=== PATIENT | male | born 1955 | race Caucasian/White ===

== ENCOUNTER 2024-11-21 07:16 | Inpatient (IN) | payer MEDICARE, SELFPAY ==
[2024-11-18 14:44] VITALS: BP 120/73
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
--- NOTE | 2024-11-18 15:38 | PHANOTE ---
med rec note- called [facility] to verify mom dose and if am doses were taking today
[2024-11-18 16:40] LABS: % Basophils 0.4 % (0-2); % Eosinophils 0.9 % (0-6); % Immature Granulocytes 0.6 % (0-0.5); % Lymphocytes 10.1 % (20.5-51.1); % Monocytes 7.7 % (1.7-9.3); % Neutrophils 80.3 % (42.2-75.2); Absolute Eosinophils 0.1 10^3/uL (0-0.7); Absolute Lymphocytes 0.6 10^3/uL (1.2-3.4); Absolute Monocytes 0.4 10^3/uL (0.1-0.6); Absolute Neutrophils 4.4 10^3/uL (1.4-6.5); Hematocrit 31.9 % (39.0-52.0); Hemoglobin 10.4 g/dL (13.0-18.0); Mean Corp Hgb Conc. 32.6 g/dL (33.0-37.0); Mean Corpuscular Volume 88.9 fL (80.0-94.0); Mean Platelet Volume 8.7 fL (7.4-10.4); Nucleated Red Blood Cells % 0 % (-); Platelet Count 306 10^3/uL (130-400); Red Blood Cell Count 3.59 10^6/uL (4.70-6.10); Red Cell Dist. Width 16.7 % (11.5-14.5); White Blood Cell Count 5.4 10^3/uL (4.8-10.8)
[2024-11-18] MEDS: ZYVOX 600 MG PO (16:47)
[2024-11-18] MEDS: ROXICODONE 5 MG PO (16:48)
[2024-11-18] MEDS: MERREM 1000 MG IV ×2 (16:49→23:19)
[2024-11-18 16:58] LABS: ALT (SGPT) 33 U/L (0-50); AST (SGOT) 25 U/L (17-59); Albumin 3.4 g/dl (3.5-5.0); Alkaline Phosphatase 134 U/L (38-126); Blood Urea Nitrogen 19 mg/dl (9-20); Calcium 9.6 mg/dl (8.4-10.2); Carbon Dioxide 32 mmol/L (22-30); Chloride 92 mmol/L (98-107); Glucose 101 mg/dl (70-99); Potassium 4.5 mmol/L (3.5-5.1); Sodium 132 mmol/L (135-145); Total Bilirubin 0.9 mg/dl (0.2-1.3); Total Protein 7.1 g/dl (6.3-8.2); eGFR > 60.00
--- NOTE | 2024-11-18 16:58 | CM ---
Addendum entered by Vesta Santoro RN 11/18/24 17:34:
CM received discharge documents from [facility] as per [facility] Nursing sign hanger supervisor.
Addendum entered by Vesta Santoro RN 11/18/24 17:07:
CM sent referrals to
[facility]
CM confirmed that patient will be discharged from SNF to either his nieces home or his brother's home.
Original Note:
MILAD met with family in room. Patient was recently admitted to [facility] from [facility] on 11/17. As per Joanie nursing sign hanger supervisor at [facility], the facility did not have the appropriate instructions for IV antibiotics, tube feeds or
medications. Joanie spoke with Marly Gloria CM at [facility] to confirm medications. As per Fidel Nair asserts that all information that was sent to [facility] was accurate.
Joanie stated that she was able to obtain an air mattress and IV antibiotics for patient. At this time, Joanie does not have information regarding patient's tube feeding.
MILAD spoke with patient's yessy Burgos , who stated that [facility] did not have an air mattress for patient, nor did they give him his antibiotics for 24 hours. Yessy was very concerned that patient would become septic again since he miss his
antibiotic doses. Yessy stated that she does not want patient to return to [facility] as she feels they are unable to care for him.
MILAD spoke with Marta FLORINA at [facility]. She was aware of patient's concerns. They attempted to return patient to [facility], but family refused as they were not happy with [facility]'s discharge planning efforts and felt [facility] did not
communicate with them.
CM update ED physician.
CM discussed discharge planning concerns with Franca Pulido CM Director.
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
[2024-11-18 20:15] VITALS: BP 128/65
--- NOTE | 2024-11-18 20:30 | PTCARENOTE ---
Received patient from ED. Patient was transferred directly to the bed. Patient AAOx3, patient has extensive wounds, colostomy, peg tube, rousseau catheter. Wound care provided by 2RNs. WOC consult in place for wound details and treatments. Assessment
completed. Orientation completed. VSS. Bed alarm placed for safety. Patient demonstrated call jaeger. Call jaeger in reach.
[2024-11-18 22:15] VITALS: BMI 21.4
[2024-11-18] MEDS: HEPARIN 5000 UNITS SC (22:23)
[2024-11-18] MEDS: DESENEX/MITRAZOL/ZEASORB 1 APPLIC TOPICAL (22:23)
[2024-11-18] MEDS: CHLORASEPTIC/SORE THROAT SPRAY 1 SPRAY PO (22:24)
[2024-11-18] MEDS: ROXICODONE ORAL SOLUTION 5 MG PO (22:27)
[2024-11-18] MEDS: LIORESAL 10 MG PO (22:30)
[2024-11-18] MEDS: NEURONTIN 100 MG PO (22:41)
[2024-11-18] MEDS: STERILE WATER FOR INJECTION 20 ML IV (23:19)
[2024-11-18 23:42] VITALS: BP 113/60
[2024-11-19] MEDS: ROXICODONE ORAL SOLUTION 2.5 MG PO ×2 (05:48→09:43)
[2024-11-19 06:07] LABS: % Basophils 0.8 % (0-2); % Eosinophils 1.8 % (0-6); % Immature Granulocytes 0.3 % (0-0.5); % Lymphocytes 13.7 % (20.5-51.1); % Monocytes 11.6 % (1.7-9.3); % Neutrophils 71.8 % (42.2-75.2); Absolute Eosinophils 0.1 10^3/uL (0-0.7); Absolute Lymphocytes 0.5 10^3/uL (1.2-3.4); Absolute Monocytes 0.5 10^3/uL (0.1-0.6); Absolute Neutrophils 2.8 10^3/uL (1.4-6.5); Hematocrit 28.5 % (39.0-52.0); Hemoglobin 9.5 g/dL (13.0-18.0); Mean Corp Hgb Conc. 33.3 g/dL (33.0-37.0); Mean Corpuscular Hgb 29.3 pg (27.0-31.0); Mean Platelet Volume 9.1 fL (7.4-10.4); Nucleated Red Blood Cells % 0 % (-); Platelet Count 302 10^3/uL (130-400); Red Blood Cell Count 3.24 10^6/uL (4.70-6.10); White Blood Cell Count 3.9 10^3/uL (4.8-10.8)
[2024-11-19 06:25] LABS: ALT (SGPT) 25 U/L (0-50); AST (SGOT) 22 U/L (17-59); Albumin 2.8 g/dl (3.5-5.0); Alkaline Phosphatase 119 U/L (38-126); Blood Urea Nitrogen 19 mg/dl (9-20); Calcium 9.2 mg/dl (8.4-10.2); Carbon Dioxide 30 mmol/L (22-30); Chloride 96 mmol/L (98-107); Estimated Creatinine Clearance 108 ml/min; Glucose 86 mg/dl (70-99); Potassium 4.1 mmol/L (3.5-5.1); Sodium 131 mmol/L (135-145); Total Bilirubin 0.7 mg/dl (0.2-1.3); Total Protein 6.4 g/dl (6.3-8.2); eGFR > 60.00
[2024-11-19 07:40] VITALS: BP 108/69
[2024-11-19] MEDS: HEPARIN 5000 UNITS SC ×2 (09:30→20:36)
[2024-11-19] MEDS: VITAMIN C 500 MG PO (09:32)
[2024-11-19] MEDS: THERAGRAN 1 TABLET PO (09:32)
[2024-11-19] MEDS: CRESTOR 10 MG PO (09:32)
[2024-11-19] MEDS: NEURONTIN 100 MG PO ×3 (09:33→21:25)
[2024-11-19] MEDS: PROTONIX 40 MG PO (09:33)
[2024-11-19] MEDS: FOLVITE 1 MG PO (09:33)
[2024-11-19] MEDS: LIORESAL 10 MG PO ×3 (09:33→21:25)
[2024-11-19] MEDS: B COMPLEX w/VITAMIN C 1 CAPLET PO (09:33)
[2024-11-19] MEDS: STERILE WATER FOR INJECTION 20 ML IV ×3 (09:34→23:52)
[2024-11-19] MEDS: MERREM 1000 MG IV ×3 (09:34→23:51)
[2024-11-19] MEDS: DESENEX/MITRAZOL/ZEASORB 1 APPLIC TOPICAL ×2 (09:38→20:37)
[2024-11-19] MEDS: TORADOL 15 MG IV (10:55)
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
[2024-11-19 15:40] VITALS: BP 108/61
[2024-11-19] MEDS: ROXICODONE ORAL SOLUTION 5 MG PO (20:47)
[2024-11-19 23:35] VITALS: BP 108/49
[2024-11-20] MEDS: TORADOL 15 MG IV ×2 (00:08→15:07)
[2024-11-20] MEDS: TYLENOL 650 MG PO ×2 (02:01→22:59)
--- NOTE | 2024-11-20 06:13 | PTCARENOTE ---
Pt with 50ml output from Chronic Bolaños. Bladder scan for 397. Notified Milana CAI. Catheter hand irrigation ordered. Administered 20ml sterile NSS and urine began draining. Total of 550 output after irrigation (530 true urine). Pt denies
pain, tolerated well. Resting comfortably in bed, call jaeger within reach.
[2024-11-20 08:40] VITALS: BP 121/59
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
[2024-11-20] MEDS: STERILE WATER FOR INJECTION 20 ML IV ×2 (09:17→15:08)
[2024-11-20] MEDS: B COMPLEX w/VITAMIN C 1 CAPLET PO (09:17)
[2024-11-20] MEDS: CRESTOR 10 MG PO (09:17)
[2024-11-20] MEDS: MERREM 1000 MG IV ×2 (09:17→15:08)
[2024-11-20] MEDS: NEURONTIN 100 MG PO ×3 (09:17→21:25)
[2024-11-20] MEDS: VITAMIN C 500 MG PO (09:17)
[2024-11-20] MEDS: FOLVITE 1 MG PO (09:17)
[2024-11-20] MEDS: PROTONIX 40 MG PO (09:17)
[2024-11-20] MEDS: LIORESAL 10 MG PO ×3 (09:17→21:25)
[2024-11-20] MEDS: THERAGRAN 1 TABLET PO (09:17)
[2024-11-20] MEDS: DESENEX/MITRAZOL/ZEASORB 1 APPLIC TOPICAL ×2 (09:18→19:50)
[2024-11-20] MEDS: HEPARIN 5000 UNITS SC ×2 (09:18→19:50)
[2024-11-20 09:33] LABS: % Basophils 0.7 % (0-2); % Eosinophils 3.2 % (0-6); % Immature Granulocytes 0.4 % (0-0.5); % Lymphocytes 13.1 % (20.5-51.1); % Monocytes 10.6 % (1.7-9.3); Absolute Eosinophils 0.1 10^3/uL (0-0.7); Absolute Lymphocytes 0.4 10^3/uL (1.2-3.4); Absolute Monocytes 0.3 10^3/uL (0.1-0.6); Hematocrit 29.2 % (39.0-52.0); Hemoglobin 9.7 g/dL (13.0-18.0); Mean Corp Hgb Conc. 33.2 g/dL (33.0-37.0); Mean Corpuscular Hgb 28.9 pg (27.0-31.0); Mean Corpuscular Volume 86.9 fL (80.0-94.0); Mean Platelet Volume 8.7 fL (7.4-10.4); Nucleated Red Blood Cells % 0 % (-); Platelet Count 254 10^3/uL (130-400); Red Blood Cell Count 3.36 10^6/uL (4.70-6.10); Red Cell Dist. Width 16.8 % (11.5-14.5); White Blood Cell Count 2.8 10^3/uL (4.8-10.8)
[2024-11-20] MEDS: ROXICODONE ORAL SOLUTION 2.5 MG PO ×2 (09:44→17:33)
[2024-11-20 09:50] LABS: Blood Urea Nitrogen 20 mg/dl (9-20); Calcium 9.2 mg/dl (8.4-10.2); Carbon Dioxide 31 mmol/L (22-30); Chloride 96 mmol/L (98-107); Estimated Creatinine Clearance 108 ml/min; Glucose 95 mg/dl (70-99); Magnesium 1.9 mg/dl (1.6-2.3); Phosphorus 3.4 mg/dl (2.5-4.5); Sodium 132 mmol/L (135-145); eGFR > 60.00
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
--- NOTE | 2024-11-20 12:51 | PHA.VAN.IN ---
Assessment
- Assessment
Renal Function: Appears similar to baseline
Concomitant Antimicrobials: meropenem, linezolid
AUC Dosing Plan
- Dosing Variables
Dosing Weight (kg): 66
Dosing CrCl (ml/min): 108
Vd coefficient (L/kg): 0.7
- Empiric Dosing
Initial / Loading Dose: 1500mg - administration pending
Maintenance Regimen: Vanc 1000mg Q12H starting 11/21 599
Estimated AUC (mcg*h/mL): 482
Estimated Peak (mcg*h/mL): 32
Estimated Trough (mcg/ml): 11.4
Estimated Half Life (H): 7.4
- Monitoring
No levels ordered at this time: consider levels in next few days
Pharmacokinetics Vancomycin I
- -
Patient Age: 69
Patient Sex: Male
Vancomycin Day #: 1
Indication: Bacteremia
Requesting Provider: Dr. Kamara
Pertinent Antimicrobial Allergies:
cephalexin - unknown
Height / Weight:
Height 5 ft 9 in
Actual Weight 65.589 kg
Pertinent Past Medical History: Sacral wounds, Laryngeal cancer (Gtube), MRSA bacteremia
- Vital Signs / Lab Results
Temp Pulse Resp BP Pulse Ox
98.3 F 76 16 121/59 100
11/20/24 08:40 11/20/24 08:40 11/20/24 08:40 11/20/24 08:40 11/20/24 11:18
Lab Results - Hematology
11/18/24 11/19/24 11/20/24
16:28 05:23 09:25
WBC 5.4 3.9 L 2.8 L
Lab Results - Chemistry
11/18/24 11/19/24 11/20/24
16:28 05:23 09:25
BUN 19 19 20
Creatinine 0.6 L 0.5 L 0.5 L
Estimated Creat Clear 108 108
Albumin 3.4 L 2.8 L
Microbiology Results
11/18/24 16:50 Blood Culture - Preliminary
Blood/Venous No Growth in 24 hours- Final report to follow
11/18/24 16:28 Blood Culture - Preliminary
Blood/Venous No Growth in 24 hours- Final report to follow
--- NOTE | 2024-11-20 13:12 | CM ---
Reviewed the chart notes and spoke with the patient and his niece at the bedside. Patient admitted under observational status. [facility] letter was provided and explained. The patient had no questions with regards to the letter.
The patient was recently in [facility] for approximately two weeks and then transferred to [facility] for IV abx and wound treatment. The patient resides with his brother in a two story home with a ramp to enter. The patient's bedroom and shower are
on first level. The patient has a wheelchair, padded shower bench and rails. The patient has had VN in the past, but could not recall the name of the agency. The patient has been to [facility] in the past for approximately two weeks.
continues to be available to patient/family and is monitoring medical plan for needs at discharge.
Plan: Discharge to a SNF/rehab once medically stable. No precert required.
[2024-11-20] MEDS: VANCOCIN 530 MG IV (13:22)
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
--- NOTE | 2024-11-20 13:38 | WOUNDNOTE ---
SACRUM/B/L ISCHIUM AND SCROTUM
--- NOTE | 2024-11-20 13:42 | WOUNDNOTE ---
L ISCHIUM POST DEBRIDEMENT
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
--- NOTE | 2024-11-20 13:57 | W.PN.SURGUPD ---
Surgical Update
Surgical Update
Sharp excisional debridement using scissors and a scalpel was performed of the RIGHT and LEFT ischial tuberosity wounds.
RIGHT wound measurements 7 x 7 x 4 cm with slight tunneling cranially. Majority of wound healthy granulation tissue. Minimal superficial necrotic/fibrinous debris debrided. Wound culture obtained. Continue to dress with wet-to-dry Dakin soaked
gauze covered with silicone border.
LEFT wound measurements 3 x 3 x 2 cm with exposed bone at wound base. Excisional debridement of necrotic skin and subcutaneous tissues. Wound culture obtained. Continue to dress with wet-to-dry Dakin soaked gauze covered with silicone border.
Patient tolerated procedure well.
--- NOTE | 2024-11-20 14:43 | WOUNDNOTE ---
ELLIOT RN NOTE ADDENDUM: Colostomy stoma pink, no leakage, no reported skin irritation. Currently using Rafy 2 1/' flat wafer and pouch. Due to be changed tomorrow, nurse Naima made aware. Called [facility] for supplies and placed in rm.
[2024-11-20 15:40] VITALS: BP 130/64
[2024-11-20 17:31] VITALS: BMI 21.4
--- NOTE | 2024-11-20 17:45 | PTCARENOTE ---
MD made aware patient's rousseau requiring irrigation overnight, cloudy yellow urine with sediment. Patient's niece at bedside stated to this RN rousseau was exchanged a couple weeks ago at [place], patient typically exchanges rousseau monthly but sometimes
more frequently if rousseau starts to clog/require irrigation. made aware, rousseau exchanged at bedside by this RN per MD, new rousseau with clear yellow output. ID at bedside, this RN discussed rousseau output with ID, no indication for UA at this time per
ID. Wound dressings changed by wound care nurse, patient placed on air bed with fiber filled boots per order.
--- NOTE | 2024-11-20 17:50 | PTOTSP ---
ST Acute Care Evaluation
Pt currently presents with fairly functional oral and pharyngeal parameters for safe ingestion of PO intake. No overt s/s of penetration or aspiration noted at bedside - please note that silent aspiration cannot be ruled out at bedside. However, pt
with known hx of laryngeal cancer s/p XRT, placing him at an elevated risk for aspiration and subsequent complications. Pt's bed-bound status also increases his risk for developing an aspiration-related PNA. Pt with known hx of GERD, placing him at
an elevated risk for post-prandial aspiration.
Recommendations:
- Continue with regular solids, thin liquids, meds as tolerated.
- Consider consultation for clinical nutrition, as pt was receiving supplemental nutrition via PEG due to reduced PO intake 2/2 odynophagia and xerostomia.
- Consider magic mouthwash - pt was on this recently? Pt reports oral sore - this was not visible to this ANIMAL ATTENDANT.
- Aspiration and reflux precautions: Fully awake, alert, and upright for all PO intake and for 60 minutes after PO intake; assist with tray set-up; small bites/sips; slow intake rate; make sure liquid is available and encourage pt to alternate
solids/liquids for all PO intake.
- ANIMAL ATTENDANT to f/u re: diet tolerance and to determine if pt would benefit from an updated instrumental swallow study.
[2024-11-20 23:08] VITALS: BP 120/64
[2024-11-21] MEDS: ROXICODONE ORAL SOLUTION 5 MG PO (00:12)
[2024-11-21] MEDS: MERREM 1000 MG IV ×2 (00:13→08:51)
[2024-11-21] MEDS: STERILE WATER FOR INJECTION 20 ML IV ×2 (00:13→08:52)
[2024-11-21] MEDS: TORADOL 15 MG IV (03:19)
--- NOTE | 2024-11-21 05:25 | VATNOTE ---
0445-ASKED TO EVALUATE PT'S C/O PAIN IN R SHOULDER AFTER RUE ML FLUSHED. ML INSERTED AT [facility] CONTROL ROOM OPERATOR. FLUSHED ML AND PT OFFERS N/C WHATSOEVER. PT VERY INDECISIVE WHEN ATTEMTPING TO VERBALIZE THE PAIN/DISCOMFORT HE IS EXPERIENCING IN RUE IN ONE SENTENCE
C/O PAIN IN SHOULDER AT ALL TIMES AND LATER IN CONVERSATION DENYING ALL DISCOMFORT. I SUGGESTED TO PATIENT AND PCN THAT I ESTABLISH ANOTHER PIV IN LUE FOR ABX DUE THIS AM AND EVALUATE RUE ML LATER THIS AM. PT ADAMATELY REFUSED TO HAVE ANOTHER IV
SITE ESTABLISHED. SITE APPEARS WNL. VAT TO FOLLOW.
[2024-11-21] MEDS: VANCOCIN 200 IV (05:41)
[2024-11-21 08:00] VITALS: BP 126/62
[2024-11-21 08:08] LABS: % Basophils 0.8 % (0-2); % Eosinophils 3.5 % (0-6); % Immature Granulocytes 0.4 % (0-0.5); % Lymphocytes 15.4 % (20.5-51.1); % Monocytes 13.8 % (1.7-9.3); % Neutrophils 66.1 % (42.2-75.2); Absolute Eosinophils 0.1 10^3/uL (0-0.7); Absolute Lymphocytes 0.4 10^3/uL (1.2-3.4); Absolute Monocytes 0.4 10^3/uL (0.1-0.6); Absolute Neutrophils 1.7 10^3/uL (1.4-6.5); Hematocrit 25.2 % (39.0-52.0); Hemoglobin 8.3 g/dL (13.0-18.0); Mean Corp Hgb Conc. 32.9 g/dL (33.0-37.0); Mean Corpuscular Hgb 29.2 pg (27.0-31.0); Mean Corpuscular Volume 88.7 fL (80.0-94.0); Mean Platelet Volume 8.8 fL (7.4-10.4); Nucleated Red Blood Cells % 0 % (-); Platelet Count 237 10^3/uL (130-400); Red Blood Cell Count 2.84 10^6/uL (4.70-6.10); Red Cell Dist. Width 16.5 % (11.5-14.5); White Blood Cell Count 2.5 10^3/uL (4.8-10.8)
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
[2024-11-21 08:25] LABS: Blood Urea Nitrogen 16 mg/dl (9-20); Calcium 8.8 mg/dl (8.4-10.2); Carbon Dioxide 33 mmol/L (22-30); Chloride 94 mmol/L (98-107); Estimated Creatinine Clearance 108 ml/min; Glucose 110 mg/dl (70-99); Potassium 4.1 mmol/L (3.5-5.1); Sodium 132 mmol/L (135-145); eGFR > 60.00
--- NOTE | 2024-11-21 08:44 | PHA.VAN.FU ---
Vancomycin Assessment / Plan
- Assessment
Renal Function: Stable
Concomitant Antimicrobials: meropenem, linezolid
- Dosing Plan
Continue: Vanc 1000mg Q12H
- Monitoring Plan
No level(s) ordered at this time: consider levels in next few days
- Follow Up
Pharmacy will continue to follow.
Vancomycin Follow UP
- -
Patient Age: 69
Patient Sex: Male
Vancomycin Day #: 2
Indication: Bacteremia
Requesting Provider: Dr. Kamara
Pertinent Antimicrobial Allergies:
cephalexin - unknown
Height / Weight:
Height 5 ft 9 in
Actual Weight 65.589 kg
Pertinent Past Medical History: Sacral wounds, Laryngeal cancer (Gtube), MRSA bacteremia
- Vital Signs / Lab Results
Temp Pulse Resp BP Pulse Ox
98.0 F 74 17 126/62 98
11/21/24 08:00 11/21/24 08:00 11/21/24 08:00 11/21/24 08:00 11/21/24 08:00
Lab Results - Hematology
11/18/24 11/19/24 11/20/24
16:28 05:23 09:25
WBC 5.4 3.9 L 2.8 L
11/21/24
07:22
WBC 2.5 L
Lab Results - Chemistry
11/18/24 11/19/24 11/20/24
16:28 05:23 09:25
BUN 19 19 20
Creatinine 0.6 L 0.5 L 0.5 L
Estimated Creat Clear 108 108
Albumin 3.4 L 2.8 L
11/21/24
07:22
BUN 16
Creatinine 0.6 L
Estimated Creat Clear 108
Albumin
Microbiology Results
11/18/24 16:50 Blood Culture - Preliminary
Blood/Venous No Growth in 48 hours- Final report to follow
11/18/24 16:28 Blood Culture - Preliminary
Blood/Venous No Growth in 48 hours- Final report to follow
11/20/24 14:11 Gram Stain - Preliminary
Sacral
11/20/24 14:11 Gram Stain - Preliminary
Hip - Left
[2024-11-21] MEDS: CRESTOR 10 MG PO (08:50)
[2024-11-21] MEDS: THERAGRAN 1 TABLET PO (08:51)
[2024-11-21] MEDS: LIORESAL 10 MG PO ×2 (08:51→15:26)
[2024-11-21] MEDS: VITAMIN C 500 MG PO (08:51)
[2024-11-21] MEDS: PROTONIX 40 MG PO (08:51)
[2024-11-21] MEDS: HEPARIN 5000 UNITS SC (08:51)
[2024-11-21] MEDS: FOLVITE 1 MG PO (08:51)
[2024-11-21] MEDS: NEURONTIN 100 MG PO ×2 (08:51→15:26)
[2024-11-21] MEDS: B COMPLEX w/VITAMIN C 1 CAPLET PO (08:51)
[2024-11-21] MEDS: DAKIN'S SOLUTION 0.125% 1/4 STRENGTH 473 ML TOPICAL (08:53)
[2024-11-21] MEDS: DESENEX/MITRAZOL/ZEASORB 1 APPLIC TOPICAL (08:53)
[2024-11-21] MEDS: SANTYL OINTMENT 1 APPLIC TOPICAL (09:03)
--- NOTE | 2024-11-21 09:44 | PTOTSP ---
Received order for PT and reviewed chart. [facility], deep [facility]ral [facility]. Pt is paraplegic at baseline. Dependent transfers to a chair are not appropriate due to sacral wounds which will be made worse by sitting on them. Needs
frequent repositioning and wound care, which are not rehab needs. PT will sign off.
[2024-11-21] MEDS: ROXICODONE ORAL SOLUTION 2.5 MG PO ×2 (10:11→14:36)
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
--- NOTE | 2024-11-21 13:02 | VATNOTE ---
Pt c/o pain in R shoulder since pt's midline was placed. UAC measured at this time at 33 cm. Per documentation on dressing, at time of insertion RUE circumference was 30 cm. Discussed with PCN, would like peripheral vascular ultrasound to r/o clot
prior to exchanging the midline to a PICC. PCN to contact MD for order.
[2024-11-21] MEDS: CUBICIN 10 MG IV (13:57)
--- NOTE | 2024-11-21 14:11 | CM ---
Reviewed the chart notes. Per ID notes, replace Vancomycin with Daptomycin 500mg IV q24h for remaining 6 weeks course through 12/23/24. CM continues to be available to patient/family and is monitoring medical plan for needs at discharge.
Plan: Discharge to SNF once medically stable and bed secured. No precert required.
[2024-11-21] MEDS: STERILE WATER FOR INJECTION IV (15:27)
[2024-11-21 15:54] VITALS: BP 140/64
--- NOTE | 2024-11-21 16:15 | PTCARENOTE ---
Patient pending US of RUE to r/o clot prior to removing R midline and placing PICC per ID. Patient ordered 4hr IV merrem infusions 3x daily per ID, on hold currently d/t sharp shooting pain when flushing R midline. In discussion with IV nurse and
ID, IV nurse to access patient subq port for infusions pending outstanding US, PICC order held at this time per ID.
[2024-11-21] MEDS: MERREM 100 MG IV (18:03)
[2024-11-21] MEDS: HEPARIN 5200 UNITS IV ×2 (19:38→20:38)
[2024-11-21 19:44] LABS: Hematocrit 26.5 % (39.0-52.0); Hemoglobin 8.8 g/dL (13.0-18.0); Mean Corp Hgb Conc. 33.2 g/dL (33.0-37.0); Mean Corpuscular Hgb 29.3 pg (27.0-31.0); Mean Corpuscular Volume 88.3 fL (80.0-94.0); Mean Platelet Volume 8.6 fL (7.4-10.4); Platelet Count 245 10^3/uL (130-400); Red Cell Dist. Width 16.7 % (11.5-14.5); White Blood Cell Count 3.7 10^3/uL (4.8-10.8)
[2024-11-21] MEDS: HEPARIN 25000 UNITS/250 ML IV (19:48)
--- NOTE | 2024-11-21 19:55 | PTCARENOTE ---
Patient RUE US showing occlusive thrombus, patient ordered hep gtt per MD, urgent PTT and IV heparin bolus. IV merrem currently infusing through accessed R subq port. PTT urgent lab draw obtained by IV team, IV heparin bolus administered by this RN
with second RN cosign per MD order. PTT result pending at this time, report given to shift leader RNs. Wound dressings on sacrum and B/L ischium changed by this RN prior to US, patient with dinner at bedside and call jaeger within reach, fiber boots in
place, states no concerns at this time. RUE limb alert band in place.
[2024-11-21 19:59] LABS: APTT 45.3 Sec (23.4-35.0)
[2024-11-21 23:40] VITALS: BP 128/52
[2024-11-22] MEDS: LIORESAL 10 MG PO ×4 (00:21→21:22)
[2024-11-22] MEDS: NEURONTIN 100 MG PO ×4 (00:21→21:17)
[2024-11-22] MEDS: DESENEX/MITRAZOL/ZEASORB 1 APPLIC TOPICAL ×3 (00:22→21:25)
[2024-11-22] MEDS: ROXICODONE ORAL SOLUTION 5 MG PO (00:41)
[2024-11-22] MEDS: STERILE WATER FOR INJECTION IV ×4 (01:04→23:17)
[2024-11-22] MEDS: MERREM 100 MG IV ×2 (03:23→10:30)
[2024-11-22 03:29] LABS: % Basophils 0.3 % (0-2); % Eosinophils 2.5 % (0-6); % Immature Granulocytes 0.3 % (0-0.5); % Lymphocytes 12.6 % (20.5-51.1); % Monocytes 11.5 % (1.7-9.3); % Neutrophils 72.8 % (42.2-75.2); Absolute Eosinophils 0.1 10^3/uL (0-0.7); Absolute Lymphocytes 0.5 10^3/uL (1.2-3.4); Absolute Monocytes 0.4 10^3/uL (0.1-0.6); Absolute Neutrophils 2.6 10^3/uL (1.4-6.5); Hematocrit 26.6 % (39.0-52.0); Hemoglobin 8.7 g/dL (13.0-18.0); Mean Corp Hgb Conc. 32.7 g/dL (33.0-37.0); Mean Corpuscular Hgb 28.6 pg (27.0-31.0); Mean Corpuscular Volume 87.5 fL (80.0-94.0); Mean Platelet Volume 8.5 fL (7.4-10.4); Nucleated Red Blood Cells % 0 % (-); Platelet Count 249 10^3/uL (130-400); Red Blood Cell Count 3.04 10^6/uL (4.70-6.10); Red Cell Dist. Width 16.7 % (11.5-14.5); White Blood Cell Count 3.6 10^3/uL (4.8-10.8)
[2024-11-22 03:54] LABS: APTT > 200.0 Sec (23.4-35.0); Blood Urea Nitrogen 13 mg/dl (9-20); Calcium 8.8 mg/dl (8.4-10.2); Carbon Dioxide 31 mmol/L (22-30); Chloride 98 mmol/L (98-107); Creatine Phosphokinase < 20 U/L (55-170); Estimated Creatinine Clearance 108 ml/min; Glucose 110 mg/dl (70-99); Potassium 3.7 mmol/L (3.5-5.1); Sodium 134 mmol/L (135-145); eGFR > 60.00
[2024-11-22 08:18] VITALS: BP 118/60
[2024-11-22] MEDS: B COMPLEX w/VITAMIN C 1 CAPLET PO (09:10)
[2024-11-22] MEDS: VITAMIN C 500 MG PO (09:10)
[2024-11-22] MEDS: THERAGRAN 1 TABLET PO (09:10)
[2024-11-22] MEDS: PROTONIX 40 MG PO (09:10)
[2024-11-22] MEDS: FOLVITE 1 MG PO (09:11)
[2024-11-22] MEDS: SANTYL OINTMENT 1 APPLIC TOPICAL (09:11)
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
[2024-11-22] MEDS: DAKIN'S SOLUTION 0.125% 1/4 STRENGTH 473 ML TOPICAL (09:21)
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
[2024-11-22 13:01] LABS: APTT 167.8 Sec (23.4-35.0)
[2024-11-22] MEDS: CIPRO 750 MG PO ×2 (13:11→21:19)
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
--- NOTE | 2024-11-22 14:01 | CM ---
Reviewed the chart notes and spoke with the patient at the bedside. Patient on high dose cipro 750mg po bid through 12/25/24 and continue Daptomycin 500mg IV q24h for remaining 6 weeks course through 12/23/24. The patient will require SNF prior to
transitioning back to his brother's home where he resides. CM continues to be available to patient/family and is monitoring medical plan for needs at discharge.
Plan: Discharge to SNF when medically stable. No precert required.
[2024-11-22 15:48] VITALS: BP 99/57
[2024-11-22] MEDS: CUBICIN 10 MG IV (16:53)
[2024-11-22] MEDS: HEPARIN 25000 UNITS/250 ML IV (17:56)
[2024-11-22] MEDS: NSS 1000 IV (18:18)
--- NOTE | 2024-11-22 18:27 | PTCARENOTE ---
Heparin gtt is going in right wrist iv and iv nss in right subq port.
[2024-11-22 20:45] LABS: APTT 75.2 Sec (23.4-35.0)
[2024-11-22] MEDS: ROXICODONE ORAL SOLUTION 2.5 MG PO (21:34)
[2024-11-22 23:19] VITALS: BP 113/59
[2024-11-23 03:17] LABS: % Basophils 0.6 % (0-2); % Eosinophils 2.1 % (0-6); % Immature Granulocytes 0.3 % (0-0.5); % Lymphocytes 15.2 % (20.5-51.1); % Monocytes 13.4 % (1.7-9.3); % Neutrophils 68.4 % (42.2-75.2); Absolute Eosinophils 0.1 10^3/uL (0-0.7); Absolute Lymphocytes 0.5 10^3/uL (1.2-3.4); Absolute Monocytes 0.5 10^3/uL (0.1-0.6); Absolute Neutrophils 2.3 10^3/uL (1.4-6.5); Hemoglobin 7.8 g/dL (13.0-18.0); Mean Corp Hgb Conc. 32.5 g/dL (33.0-37.0); Mean Corpuscular Hgb 28.9 pg (27.0-31.0); Mean Corpuscular Volume 88.9 fL (80.0-94.0); Mean Platelet Volume 8.4 fL (7.4-10.4); Nucleated Red Blood Cells % 0 % (-); Platelet Count 210 10^3/uL (130-400); Red Cell Dist. Width 16.8 % (11.5-14.5); White Blood Cell Count 3.4 10^3/uL (4.8-10.8)
[2024-11-23] MEDS: ROXICODONE ORAL SOLUTION 5 MG PO ×2 (03:17→22:30)
[2024-11-23 03:30] LABS: APTT 106.3 Sec (23.4-35.0)
[2024-11-23 04:12] LABS: Blood Urea Nitrogen 11 mg/dl (9-20); Calcium 8.5 mg/dl (8.4-10.2); Carbon Dioxide 33 mmol/L (22-30); Chloride 98 mmol/L (98-107); Estimated Creatinine Clearance 108 ml/min; Glucose 107 mg/dl (70-99); Potassium 3.9 mmol/L (3.5-5.1); Sodium 133 mmol/L (135-145); eGFR > 60.00
[2024-11-23 07:29] VITALS: BP 90/52
[2024-11-23] MEDS: VITAMIN C 500 MG PO (08:23)
[2024-11-23] MEDS: B COMPLEX w/VITAMIN C 1 CAPLET PO (08:23)
[2024-11-23] MEDS: PROTONIX 40 MG PO (08:23)
[2024-11-23] MEDS: CIPRO 750 MG PO ×2 (08:24→21:41)
[2024-11-23] MEDS: FOLVITE 1 MG PO (08:25)
[2024-11-23] MEDS: THERAGRAN 1 TABLET PO (08:25)
[2024-11-23] MEDS: NEURONTIN 100 MG PO ×3 (08:25→21:47)
[2024-11-23] MEDS: LIORESAL 10 MG PO ×3 (08:25→21:47)
[2024-11-23] MEDS: DAKIN'S SOLUTION 0.125% 1/4 STRENGTH 1 ML TOPICAL (08:30)
[2024-11-23] MEDS: DESENEX/MITRAZOL/ZEASORB 1 APPLIC TOPICAL ×2 (08:31→21:48)
[2024-11-23] MEDS: SANTYL OINTMENT 1 APPLIC TOPICAL (08:32)
[2024-11-23] MEDS: STERILE WATER FOR INJECTION IV (08:33)
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
[2024-11-23] MEDS: ELIQUIS 10 MG PO ×2 (09:40→21:46)
[2024-11-23] MEDS: NSS 250 IV (10:22)
[2024-11-23 11:23] VITALS: BP 97/47
--- NOTE | 2024-11-23 14:24 | CM ---
Reviewed the chart notes and spoke with the patient at the bedside. CM continues to be available to patient/family and is monitoring medical plan for needs at discharge.
Plan: Discharge to SNF/rehab once medically stable and bed found. No precert required.
--- NOTE | 2024-11-23 15:18 | WOUNDNOTE ---
WOC RN note: morris Fonseca re: patient will need an air mattress at SNF.
[2024-11-23 15:40] VITALS: BP 102/56
[2024-11-23] MEDS: CUBICIN 10 MG IV (15:51)
[2024-11-23] MEDS: ROXICODONE ORAL SOLUTION 2.5 MG PO (15:57)
[2024-11-23] MEDS: NSS 1000 IV (21:49)
[2024-11-23 22:57] VITALS: BP 109/55
[2024-11-24 07:54] VITALS: BP 106/58
[2024-11-24 08:49] LABS: % Basophils 0.6 % (0-2); % Eosinophils 3.2 % (0-6); % Immature Granulocytes 0.6 % (0-0.5); % Lymphocytes 12.7 % (20.5-51.1); % Monocytes 12.7 % (1.7-9.3); % Neutrophils 70.2 % (42.2-75.2); APTT 61.6 Sec (23.4-35.0); Absolute Eosinophils 0.1 10^3/uL (0-0.7); Absolute Lymphocytes 0.4 10^3/uL (1.2-3.4); Absolute Monocytes 0.4 10^3/uL (0.1-0.6); Absolute Neutrophils 2.2 10^3/uL (1.4-6.5); Mean Corp Hgb Conc. 33.3 g/dL (33.0-37.0); Mean Corpuscular Hgb 29.5 pg (27.0-31.0); Mean Corpuscular Volume 88.6 fL (80.0-94.0); Mean Platelet Volume 8.8 fL (7.4-10.4); Nucleated Red Blood Cells % 0 % (-); Platelet Count 209 10^3/uL (130-400); Red Blood Cell Count 2.71 10^6/uL (4.70-6.10); White Blood Cell Count 3.2 10^3/uL (4.8-10.8)
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
[2024-11-24 09:37] LABS: Blood Urea Nitrogen 10 mg/dl (9-20); Calcium 8.7 mg/dl (8.4-10.2); Carbon Dioxide 31 mmol/L (22-30); Chloride 98 mmol/L (98-107); Estimated Creatinine Clearance 108 ml/min; Glucose 92 mg/dl (70-99); Potassium 3.8 mmol/L (3.5-5.1); Sodium 133 mmol/L (135-145); eGFR > 60.00
[2024-11-24] MEDS: B COMPLEX w/VITAMIN C 1 CAPLET PO (09:57)
[2024-11-24] MEDS: FOLVITE 1 MG PO (09:57)
[2024-11-24] MEDS: LIORESAL 10 MG PO ×3 (09:57→21:17)
[2024-11-24] MEDS: PROTONIX 40 MG PO (09:57)
[2024-11-24] MEDS: ELIQUIS 10 MG PO ×2 (09:57→21:16)
[2024-11-24] MEDS: THERAGRAN 1 TABLET PO (09:57)
[2024-11-24] MEDS: NEURONTIN 100 MG PO ×3 (09:57→21:18)
[2024-11-24 09:58] LABS: Cortisol, Random 12.9 ug/dl; TSH Reflex To Free T4 0.42 uIU/ml (0.47-4.68)
[2024-11-24] MEDS: SANTYL OINTMENT 1 APPLIC TOPICAL (09:58)
[2024-11-24] MEDS: CIPRO 750 MG PO ×2 (09:58→21:15)
[2024-11-24] MEDS: VITAMIN C 500 MG PO (09:58)
[2024-11-24] MEDS: DAKIN'S SOLUTION 0.125% 1/4 STRENGTH 473 ML TOPICAL (09:59)
[2024-11-24] MEDS: DESENEX/MITRAZOL/ZEASORB 1 APPLIC TOPICAL ×2 (09:59→21:17)
[2024-11-24 10:26] LABS: Free T4 1.63 ng/dl (0.78-2.19)
[2024-11-24] MEDS: CUBICIN 10 MG IV (13:29)
[2024-11-24] MEDS: FLUSH (NSS) 1 FLUSH IV (13:29)
--- NOTE | 2024-11-24 15:52 | CM ---
Reviewed the chart notes and spoke with the patient at the bedside. Patient requested CM contact his [id number] Dea ([phone]). [id number] requested clinicals be faxed to [facility] ([phone]) for a special type of
bed. Contact at [facility] is Kelsie ([phone]). Permission was received from the patient to fax information. Discussed with patient and [id number] that [facility] will be willing to accept. CM continues to be available to patient/family
and is monitoring medical plan for needs at discharge.
Plan: Discharge to SNF once medically stable and facility having a bed.
[2024-11-24 16:00] VITALS: BP 113/94
[2024-11-24] MEDS: NSS IV (16:43)
[2024-11-24 23:09] VITALS: BP 106/64
[2024-11-24] MEDS: ROXICODONE ORAL SOLUTION 5 MG PO (23:21)
[2024-11-25 07:00] VITALS: BP 108/57
[2024-11-25] MEDS: CIPRO 750 MG PO ×2 (08:26→21:57)
[2024-11-25] MEDS: B COMPLEX w/VITAMIN C 1 CAPLET PO (08:26)
[2024-11-25] MEDS: PROTONIX 40 MG PO (08:27)
[2024-11-25] MEDS: THERAGRAN 1 TABLET PO (08:27)
[2024-11-25] MEDS: LIORESAL 10 MG PO ×3 (08:27→21:58)
[2024-11-25] MEDS: ELIQUIS 10 MG PO ×2 (08:27→21:57)
[2024-11-25] MEDS: NEURONTIN 100 MG PO ×3 (08:28→21:58)
[2024-11-25] MEDS: VITAMIN C 500 MG PO (08:28)
[2024-11-25] MEDS: SANTYL OINTMENT 1 APPLIC TOPICAL (08:29)
[2024-11-25] MEDS: DESENEX/MITRAZOL/ZEASORB 1 APPLIC TOPICAL ×2 (08:30→21:58)
[2024-11-25] MEDS: DAKIN'S SOLUTION 0.125% 1/4 STRENGTH 473 ML TOPICAL (08:31)
[2024-11-25] MEDS: FOLVITE 1 MG PO (08:32)
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
[2024-11-25 09:55] LABS: Hematocrit 23.3 % (39.0-52.0); Hemoglobin 7.7 g/dL (13.0-18.0); Mean Corpuscular Hgb 29.4 pg (27.0-31.0); Mean Corpuscular Volume 88.9 fL (80.0-94.0); Platelet Count 219 10^3/uL (130-400); Red Blood Cell Count 2.62 10^6/uL (4.70-6.10); White Blood Cell Count 2.9 10^3/uL (4.8-10.8)
[2024-11-25 10:15] LABS: Blood Urea Nitrogen 10 mg/dl (9-20); Calcium 8.8 mg/dl (8.4-10.2); Carbon Dioxide 32 mmol/L (22-30); Chloride 96 mmol/L (98-107); Estimated Creatinine Clearance 108 ml/min; Glucose 94 mg/dl (70-99); Potassium 3.8 mmol/L (3.5-5.1); Sodium 133 mmol/L (135-145); eGFR > 60.00
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
[2024-11-25 15:31] VITALS: BP 108/49
[2024-11-25] MEDS: CUBICIN 10 MG IV (16:07)
[2024-11-25] MEDS: ROXICODONE ORAL SOLUTION 5 MG PO (23:23)
[2024-11-25 23:33] VITALS: BP 111/59
[2024-11-26] MEDS: ROXICODONE ORAL SOLUTION 2.5 MG PO (05:28)
[2024-11-26 06:01] LABS: % Basophils 0.9 % (0-2); % Eosinophils 3.5 % (0-6); % Immature Granulocytes 0.9 % (0-0.5); % Lymphocytes 14.7 % (20.5-51.1); % Monocytes 13.5 % (1.7-9.3); % Neutrophils 66.5 % (42.2-75.2); Absolute Eosinophils 0.1 10^3/uL (0-0.7); Absolute Lymphocytes 0.5 10^3/uL (1.2-3.4); Absolute Monocytes 0.5 10^3/uL (0.1-0.6); Absolute Neutrophils 2.3 10^3/uL (1.4-6.5); Hematocrit 27.4 % (39.0-52.0); Hemoglobin 8.6 g/dL (13.0-18.0); Mean Corp Hgb Conc. 31.4 g/dL (33.0-37.0); Mean Corpuscular Hgb 28.2 pg (27.0-31.0); Mean Corpuscular Volume 89.8 fL (80.0-94.0); Mean Platelet Volume 8.8 fL (7.4-10.4); Nucleated Red Blood Cells % 0 % (-); Platelet Count 224 10^3/uL (130-400); Red Blood Cell Count 3.05 10^6/uL (4.70-6.10); White Blood Cell Count 3.4 10^3/uL (4.8-10.8)
[2024-11-26 06:18] LABS: Blood Urea Nitrogen 11 mg/dl (9-20); Calcium 8.9 mg/dl (8.4-10.2); Carbon Dioxide 31 mmol/L (22-30); Chloride 98 mmol/L (98-107); Estimated Creatinine Clearance 108 ml/min; Glucose 103 mg/dl (70-99); Potassium 4.1 mmol/L (3.5-5.1); Sodium 133 mmol/L (135-145); eGFR > 60.00
[2024-11-26 07:57] VITALS: BP 91/52
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
[2024-11-26] MEDS: SANTYL OINTMENT 1 APPLIC TOPICAL (09:07)
[2024-11-26] MEDS: ProAmatine 5 MG PO (09:07)
[2024-11-26] MEDS: CIPRO 750 MG PO ×2 (09:07→20:54)
[2024-11-26] MEDS: B COMPLEX w/VITAMIN C 1 CAPLET PO (09:07)
[2024-11-26] MEDS: NEURONTIN 100 MG PO ×3 (09:08→20:54)
[2024-11-26] MEDS: THERAGRAN 1 TABLET PO (09:08)
[2024-11-26] MEDS: FOLVITE 1 MG PO (09:08)
[2024-11-26] MEDS: LIORESAL 10 MG PO ×3 (09:08→20:54)
[2024-11-26] MEDS: PROTONIX 40 MG PO (09:08)
[2024-11-26] MEDS: VITAMIN C 500 MG PO (09:08)
[2024-11-26] MEDS: ELIQUIS 10 MG PO ×2 (09:08→20:53)
[2024-11-26] MEDS: DESENEX/MITRAZOL/ZEASORB 1 APPLIC TOPICAL ×2 (09:12→20:56)
[2024-11-26] MEDS: DAKIN'S SOLUTION 0.125% 1/4 STRENGTH 473 ML TOPICAL (09:12)
[2024-11-26] MEDS: TORADOL 15 MG IV (10:06)
[2024-11-26] MEDS: MILK OF MAGNESIA 30 ML PO (10:08)
[2024-11-26 11:01] VITALS: BP 138/63
[2024-11-26 15:19] VITALS: BP 135/61
[2024-11-26] MEDS: CUBICIN 10 MG IV (15:25)
--- NOTE | 2024-11-26 23:26 | PTCARENOTE ---
Pt assessed as per work list flow sheet. Dsgs were changes by day shift RN. All appear CDI. Pt c/o a sore throat later in shift. Pt offered throat spray, sips of liquid and to contact covering provider for lozenges but pt declined all offered
interventions. No s/s of distress assessed. Will continue to monitor.
[2024-11-26 23:43] VITALS: BP 109/55
[2024-11-27] MEDS: ROXICODONE ORAL SOLUTION 5 MG PO (01:38)
[2024-11-27 05:43] LABS: % Basophils 0.3 % (0-2); % Eosinophils 2.3 % (0-6); % Immature Granulocytes 0.5 % (0-0.5); % Lymphocytes 10.3 % (20.5-51.1); % Monocytes 11.3 % (1.7-9.3); % Neutrophils 75.3 % (42.2-75.2); Absolute Eosinophils 0.1 10^3/uL (0-0.7); Absolute Lymphocytes 0.4 10^3/uL (1.2-3.4); Absolute Monocytes 0.4 10^3/uL (0.1-0.6); Absolute Neutrophils 2.9 10^3/uL (1.4-6.5); Hematocrit 24.6 % (39.0-52.0); Hemoglobin 7.9 g/dL (13.0-18.0); Mean Corp Hgb Conc. 32.1 g/dL (33.0-37.0); Mean Corpuscular Hgb 28.1 pg (27.0-31.0); Mean Corpuscular Volume 87.5 fL (80.0-94.0); Mean Platelet Volume 8.5 fL (7.4-10.4); Nucleated Red Blood Cells % 0 % (-); Platelet Count 224 10^3/uL (130-400); Red Blood Cell Count 2.81 10^6/uL (4.70-6.10); Red Cell Dist. Width 16.7 % (11.5-14.5); White Blood Cell Count 3.9 10^3/uL (4.8-10.8)
[2024-11-27 06:08] LABS: Blood Urea Nitrogen 18 mg/dl (9-20); Calcium 8.7 mg/dl (8.4-10.2); Carbon Dioxide 30 mmol/L (22-30); Chloride 97 mmol/L (98-107); Estimated Creatinine Clearance 81 ml/min; Glucose 106 mg/dl (70-99); Potassium 4.3 mmol/L (3.5-5.1); Sodium 131 mmol/L (135-145); eGFR > 60.00
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
[2024-11-27 07:36] VITALS: BP 90/50
[2024-11-27 07:56] LABS: Iron 29 ug/dl (49-181)
[2024-11-27 08:05] LABS: Percent Saturation 15 % (20-50); Total Iron Binding Capacity 183 ug/dl (261-462)
[2024-11-27] MEDS: SANTYL OINTMENT 1 APPLIC TOPICAL (08:56)
[2024-11-27] MEDS: CIPRO 750 MG PO ×2 (08:56→21:30)
[2024-11-27] MEDS: NEURONTIN 100 MG PO ×3 (08:56→22:35)
[2024-11-27] MEDS: THERAGRAN 1 TABLET PO (08:56)
[2024-11-27] MEDS: LIORESAL 10 MG PO ×3 (08:56→22:35)
[2024-11-27] MEDS: VITAMIN C 500 MG PO (08:56)
[2024-11-27] MEDS: ELIQUIS 10 MG PO ×2 (08:56→21:30)
[2024-11-27] MEDS: B COMPLEX w/VITAMIN C 1 CAPLET PO (08:56)
[2024-11-27] MEDS: FOLVITE 1 MG PO (08:56)
[2024-11-27] MEDS: PROTONIX 40 MG PO (08:56)
[2024-11-27] MEDS: DAKIN'S SOLUTION 0.125% 1/4 STRENGTH 1 ML TOPICAL (08:57)
[2024-11-27] MEDS: DESENEX/MITRAZOL/ZEASORB 1 APPLIC TOPICAL ×2 (08:57→21:31)
[2024-11-27 09:20] VITALS: BP 110/58
[2024-11-27 10:01] LABS: Folate > 20.0 ng/ml (2.76-20); Vitamin B12 537 pg/ml (239-931)
[2024-11-27] MEDS: ROXICODONE ORAL SOLUTION 2.5 MG PO (12:01)
--- NOTE | 2024-11-27 13:23 | WOUNDNOTE ---
R LOWER LEG ANTERIOR
--- NOTE | 2024-11-27 13:31 | WOUNDNOTE ---
ELLIOT RN NOTE: Followed up today with assist of nurse Brady and changed dressings. I also changed colostomy appliance, stoma pink and peristomal skin intact. All wounds look wallpaper cleaner with exception of L Ischium, has necrotic edges with undermining.
Requested from Dr. Minaya to view wound pictures and decide if further debridement necessary. Henok and Masood's WTD in use. Patient easy to turn, repositioned onto L semi side lying position. Patient remains on an Air mattress. Bryce damon
offloading heel boots also in use. Encouraged patient to select protein rich options for meals. Will follow along and update wound care as needed.
[2024-11-27] MEDS: CUBICIN 10 MG IV (14:38)
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
[2024-11-27 15:30] VITALS: BP 96/61
--- NOTE | 2024-11-27 16:15 | CM ---
Reviewed the chart notes and spoke with the patient at the bedside. Discuss the are SNFs that are unable to accept. Permission received to send additional SNF referrals out via [facility]. CM continues to be available to patient/family and is
monitoring medical plan for needs at discharge.
Plan: Discharge to SNF once a bed found. No precert required.
[2024-11-27 23:51] VITALS: BP 145/65
[2024-11-28 06:50] LABS: Hematocrit 23.3 % (39.0-52.0); Hemoglobin 7.5 g/dL (13.0-18.0); Mean Corp Hgb Conc. 32.2 g/dL (33.0-37.0); Mean Corpuscular Hgb 28.5 pg (27.0-31.0); Mean Corpuscular Volume 88.6 fL (80.0-94.0); Mean Platelet Volume 8.7 fL (7.4-10.4); Platelet Count 219 10^3/uL (130-400); Red Blood Cell Count 2.63 10^6/uL (4.70-6.10); Red Cell Dist. Width 16.8 % (11.5-14.5); White Blood Cell Count 3.6 10^3/uL (4.8-10.8)
[2024-11-28 07:12] LABS: Blood Urea Nitrogen 16 mg/dl (9-20); Calcium 8.6 mg/dl (8.4-10.2); Carbon Dioxide 32 mmol/L (22-30); Chloride 99 mmol/L (98-107); Creatine Phosphokinase < 20 U/L (55-170); Estimated Creatinine Clearance 72 ml/min; Glucose 109 mg/dl (70-99); Magnesium 1.8 mg/dl (1.6-2.3); Phosphorus 3.8 mg/dl (2.5-4.5); Potassium 4.1 mmol/L (3.5-5.1); Sodium 132 mmol/L (135-145); eGFR > 60.00
[2024-11-28 07:14] VITALS: BP 100/53
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
[2024-11-28] MEDS: FOLVITE 1 MG PO (09:04)
[2024-11-28] MEDS: CIPRO 750 MG PO ×2 (09:04→21:30)
[2024-11-28] MEDS: VITAMIN C 500 MG PO (09:05)
[2024-11-28] MEDS: B COMPLEX w/VITAMIN C 1 CAPLET PO (09:05)
[2024-11-28] MEDS: SANTYL OINTMENT 1 APPLIC TOPICAL (09:05)
[2024-11-28] MEDS: THERAGRAN 1 TABLET PO (09:06)
[2024-11-28] MEDS: PROTONIX 40 MG PO (09:06)
[2024-11-28] MEDS: ELIQUIS 10 MG PO (09:06)
[2024-11-28] MEDS: LIORESAL 10 MG PO ×3 (09:06→21:32)
[2024-11-28] MEDS: NEURONTIN 100 MG PO ×3 (09:06→21:31)
[2024-11-28] MEDS: DAKIN'S SOLUTION 0.125% 1/4 STRENGTH 473 ML TOPICAL (09:09)
[2024-11-28] MEDS: DESENEX/MITRAZOL/ZEASORB 1 APPLIC TOPICAL ×2 (09:10→21:32)
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
--- NOTE | 2024-11-28 10:38 | CM ---
Reviewed the chart notes and spoke with the patient's niece Lizzette via telephone. Per Lizzette and patient, now want patient to be placed closer to the niece in [facility]. Referrals sent to [facility], and [facility] at the request of
niece. CM continues to be available to patient/family and is monitoring medical plan for needs at discharge.
Plan: Discharge to SNF/rehab once bed secured. No precert requested.
[2024-11-28 14:34] LABS: COVID-19 Antigen Negative (Negative)
[2024-11-28] MEDS: CUBICIN 10 MG IV (15:09)
[2024-11-28 15:49] VITALS: BP 110/72
--- NOTE | 2024-11-28 16:15 | W.PN.SURGUPD ---
Surgical Update
Surgical Update
Asked by Hospitalist to re-evaluate patient for concern of continued skin and soft tissue necrosis of ischial pressure wound. Wound care documentation reviewed and reveals a widely drained wound with thin rim of necrotic skin and subcutaneous
tissues. There is some superficial fibrinous debris overlying healthy granulation tissue. Wound tracks down to bone, clinically osteomyelitis with exposed bone. Patient has no sensation in this area and ideally would perform bedside debridement.
Unfortunately, he is currently on Xarelto for a DVT and unable to receive either bedside or operative debridement at this time due to increased bleeding risks. Options for continued wound care with likely progression of the wound versus repeat
debridement were considered. Pros and cons were discussed. Likely that continued wound care will result in continued deterioration of the wound over the ensuing weeks. High likelihood of failure regardless of treatment option given his
osteomyelitis, immunosuppression, and inability to fully avoid pressure on these areas. Patient and brother states that he would like to be aggressive with these wounds. Tentative plan for either bedside or operative debridement or Wednesday
of this week following reversal of his anticoagulation. All questions answered. Primary team updated.
[2024-11-28 16:55] LABS: APTT 72.6 Sec (23.4-35.0)
[2024-11-28] MEDS: HEPARIN 25000 UNITS/250 ML IV (17:35)
[2024-11-28] MEDS: TYLENOL 650 MG PO (17:35)
[2024-11-28] MEDS: MILK OF MAGNESIA 30 ML PO (17:35)
[2024-11-28] MEDS: FEOSOL 325 MG PO (17:37)
--- NOTE | 2024-11-28 17:46 | PTCARENOTE ---
pt started with Upper respiratory symptoms of cough, congestion and runny nose, Covid and Flu test positive, pt also with a fever, Dr Brown made aware. No wheezing or SOB noted this shift.
[2024-11-28 23:30] VITALS: BP 108/53
[2024-11-29] VITALS (46 sets, daily range): BP systolic 60–141; BP diastolic 37–93
[2024-11-29 00:10] LABS: APTT > 200 Sec (23.4-35.0)
[2024-11-29 02:42] LABS: APTT 96.5 Sec (23.4-35.0)
--- NOTE | 2024-11-29 03:10 | DOWNTIME ---
There was a [employer] Clinical Writer Downtime on 11/29/2024 from 0100 to 11/29/2023 at 0235 . Downtime documentation of patient's care, including medication administrations, has been reconciled in the electronic record per guidelines. Refer to the
patient's paper chart under the miscellaneous tab to see printed paper medication records and downtime forms.
--- NOTE | 2024-11-29 03:14 | W.PN.UPDATE ---
Update Note
Progress Note Update
Patient with increasing cough, nasal congestion, denies sob, chest pain. febrile 102.4.
Neg covid and flu test yesterday.
Chest x-ray ordered.
[2024-11-29 04:07] LABS: Hemoglobin 8.1 g/dL (13.0-18.0); Mean Corp Hgb Conc. 32.4 g/dL (33.0-37.0); Mean Corpuscular Hgb 28.3 pg (27.0-31.0); Mean Corpuscular Volume 87.4 fL (80.0-94.0); Mean Platelet Volume 8.6 fL (7.4-10.4); Platelet Count 236 10^3/uL (130-400); Red Blood Cell Count 2.86 10^6/uL (4.70-6.10); Red Cell Dist. Width 16.7 % (11.5-14.5); White Blood Cell Count 3.6 10^3/uL (4.8-10.8)
[2024-11-29 04:20] LABS: Blood Urea Nitrogen 16 mg/dl (9-20); Calcium 8.9 mg/dl (8.4-10.2); Carbon Dioxide 31 mmol/L (22-30); Chloride 97 mmol/L (98-107); Estimated Creatinine Clearance 72 ml/min; Glucose 130 mg/dl (70-99); Magnesium 1.8 mg/dl (1.6-2.3); Phosphorus 3.5 mg/dl (2.5-4.5); Potassium 4.2 mmol/L (3.5-5.1); Sodium 131 mmol/L (135-145); eGFR > 60.00
[2024-11-29] MEDS: OFIRMEV 100 IV (04:44)
--- NOTE | 2024-11-29 06:22 | PTCARENOTE ---
Pt had elevating temps and worsening confusion t/o shift. At 0300 pt had a temp of 102.4 oral... VS otherwise stable. See work-list. CHIEF ARCHITECT notified. Ice packs placed on pt, Ofirmev 1000mg IV ordered (see MAR)... STAT Chest X-Ray ordered & obtained. Pt
temp @ 0600 101.0
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
--- NOTE | 2024-11-29 07:45 | PTCARENOTE ---
Patient's 0 PTT resulted >200. Per IV team - PTT results could have been wrongly elevated d/t PTT being drawn from Heparin locked SubQ port. IV team recommended redrawing PTT peripherally. ELECTRICAL TECHNOLOGY INSTRUCTOR notified and PTT redrawn - new PTT result therapeutic
at 96.5.
--- NOTE | 2024-11-29 08:15 | PTCARENOTE ---
Patient with intermittent fevers and complaining of chills/ congestion. Patient drowsy and more forgetful than usual. Patient c/o of difficulty swallowing pills. MD made aware. TT speech pathology to reevaluate patient. Repeat covid/ flu tests
ordered for this afternoon. Call jaeger within reach of patient.
--- NOTE | 2024-11-29 08:19 | CM ---
Reviewed the chart notes. [facility] bed script faxed back to [facility].
[2024-11-29] MEDS: PROTONIX 40 MG PO (08:51)
[2024-11-29] MEDS: LIORESAL 10 MG PO ×3 (08:51→22:16)
[2024-11-29] MEDS: B COMPLEX w/VITAMIN C 1 CAPLET PO (08:51)
[2024-11-29] MEDS: VITAMIN C 500 MG PO (08:51)
[2024-11-29] MEDS: FOLVITE 1 MG PO (08:51)
[2024-11-29] MEDS: NEURONTIN 100 MG PO ×3 (08:51→22:16)
[2024-11-29] MEDS: CIPRO 750 MG PO (08:52)
[2024-11-29] MEDS: THERAGRAN 1 TABLET PO (08:52)
[2024-11-29] MEDS: FEOSOL 325 MG PO (08:52)
[2024-11-29] MEDS: DAKIN'S SOLUTION 0.125% 1/4 STRENGTH 1 ML TOPICAL (08:54)
[2024-11-29] MEDS: DESENEX/MITRAZOL/ZEASORB 1 APPLIC TOPICAL ×2 (08:55→21:09)
[2024-11-29] MEDS: SANTYL OINTMENT 1 APPLIC TOPICAL (08:56)
[2024-11-29 09:52] LABS: APTT 146.6 Sec (23.4-35.0)
--- NOTE | 2024-11-29 10:17 | W.PN.UPDATE ---
Update Note
Progress Note Update
Tentative plan for bedside debridement of sacral pressure wounds tomorrow after additional 24 hrs of eliquis washout
--- NOTE | 2024-11-29 10:42 | CM ---
Reviewed the chart notes. Per notes, tentative plan for bedside debridement of sacral pressure wounds tomorrow. CM continues to be available to patient/family and is monitoring medical plan for needs at discharge.
Plan: Discharge to SNF once bed found and medically stable. No precert required.
[2024-11-29] MEDS: TYLENOL 650 MG PO ×2 (11:57→18:03)
[2024-11-29] MEDS: CUBICIN 10 MG IV (13:01)
[2024-11-29 13:28] LABS: Glucose - Point of Care 132 mg/dl (70-99)
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
[2024-11-29 13:43] LABS: B.E. 4.6 mmol/L; HCO3 28.1 mmol/L (21-28); Hematocrit 22.8 % (39.0-52.0); Hemoglobin 7.5 g/dL (13.0-18.0); Mean Corp Hgb Conc. 32.9 g/dL (33.0-37.0); Mean Corpuscular Hgb 28.3 pg (27.0-31.0); Mean Platelet Volume 8.6 fL (7.4-10.4); O2 Saturation % 98.9 % (94-98); PCO2 36 mmHg (35-48); PO2 87 mmHg (83-108); Platelet Count 212 10^3/uL (130-400); Red Blood Cell Count 2.65 10^6/uL (4.70-6.10); White Blood Cell Count 2.9 10^3/uL (4.8-10.8)
--- NOTE | 2024-11-29 13:49 | RR ---
A Rapid Response was called on this patient, please see Rapid Response form.
Patient with increasing temperature after PO Tylenol. Patient with an oral temp of 104.1. Patient pallor, drowsy and confused. Pulse ox 89% on RA. BP 95/60 and HR 106. 3L NC placed. EKG done, labs and ABG done. MD at bedside. Patient transferred to
ICU.
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
[2024-11-29 13:55] LABS: ALT (SGPT) 29 U/L (0-50); AST (SGOT) 36 U/L (17-59); Albumin 2.8 g/dl (3.5-5.0); Alkaline Phosphatase 81 U/L (38-126); Blood Urea Nitrogen 15 mg/dl (9-20); Calcium 8.4 mg/dl (8.4-10.2); Carbon Dioxide 28 mmol/L (22-30); Chloride 95 mmol/L (98-107); Estimated Creatinine Clearance 65 ml/min; Glucose 126 mg/dl (70-99); Potassium 3.9 mmol/L (3.5-5.1); Sodium 129 mmol/L (135-145); Total Bilirubin 0.5 mg/dl (0.2-1.3); Total Protein 6.4 g/dl (6.3-8.2); eGFR > 60.00
[2024-11-29 13:56] LABS: Lactic Acid 0.8 mmol/L (0.7-2.0)
[2024-11-29] MEDS: LEVOPHED 250 IV (14:42)
[2024-11-29] MEDS: NSS 1000 IV (14:43)
--- NOTE | 2024-11-29 15:14 | PHA.VAN.IN ---
Assessment
- Assessment
Renal Function: Appears elevated from baseline (0.5)
Maximum Temperature: 104.1 F oral 11/29/24 @ 1312
Concomitant Antimicrobials: cefiderocol
Plan
- Plan
Initial / Loading Dose: vanc 1500mg pending administration
Maintenance Regimen: dosing by level due to SCr trending up
Monitoring: random level 11/30 AM
Pharmacokinetics Vancomycin I
- -
Patient Age: 69
Patient Sex: Male
Vancomycin Day #: 1 (reconsulted )
Indication: Other
Requesting Provider: Dr. Kamara
Pertinent Antimicrobial Allergies:
cephalexin - unknown
Height / Weight:
Height 5 ft 9 in
Actual Weight 65.589 kg
Pertinent Past Medical History: Sacral wounds, Laryngeal cancer (Gtube), MRSA bacteremia
- Vital Signs / Lab Results
Temp Pulse Resp BP Pulse Ox
102 F H 93 18 100/55 93
11/29/24 14:36 11/29/24 14:45 11/29/24 14:45 11/29/24 14:45 11/29/24 14:30
Lab Results - Hematology
11/27/24 11/28/24 11/29/24
05:30 06:13 03:13
WBC 3.9 L 3.6 L Cancelled
11/29/24 11/29/24
03:34 13:25
WBC 3.6 L 2.9 L
Lab Results - Chemistry
11/27/24 11/28/24 11/29/24
05:30 06:13 03:13
BUN 18 16 Cancelled
Creatinine 0.8 0.9 Cancelled
Estimated Creat Clear 81 72 Cancelled
Albumin
11/29/24 11/29/24
03:34 13:25
BUN 16 15
Creatinine 0.9 1.0
Estimated Creat Clear 72 65
Albumin 2.8 L
11/29/24
13:25
Lactic Acid 0.8
Microbiology Results
11/28/24 14:02 Influenza Types A & B (MURIEL) - Final
Nasal Swab Negative for Influenza A & B, NAAT
Negative results must be combined with clinical observations
and patient history.
Nucleic Acid Amplification test (NAAT)performed on the
[employer] platform.
--- NOTE | 2024-11-29 15:43 | PTCARENOTE ---
Pt received to ICU bed 3363 from rapid responsive on 2N. Pt lethargic on arrival. Oriented x1-2. Aware he was in hospital but did not know which hospital. Sinus rhythm to tachycardia. Levophed started for BP 88/47. Now off d/t BP 141/60.
Received on 3L NC. Weaned off on arrival. SpO2 noted to be 96% on room air while awake. Appears to have sleep apnea. SpO2 dipped intermittently to 88% while sleeping. Now on 2L NC. Temp on arrival to unit 102 PO. Now 99.6 PO. Pt AAOx3 at
this time. Currently on IVF and Heparin gtt per protocol. Temp improved prior to placing on cooling blanket. All wounds assessed and dressings changed. Niece updated via phone. Brother at bedside.
[2024-11-29 16:03] LABS: COVID-19 Antigen Negative (Negative)
[2024-11-29] MEDS: FETROJA 122.4 MG IV (16:25)
[2024-11-29] MEDS: HEPARIN 25000 UNITS/250 ML IV (17:08)
[2024-11-29] MEDS: VANCOCIN 530 MG IV (17:09)
[2024-11-29 17:36] LABS: APTT > 200 Sec (23.4-35.0)
[2024-11-29] MEDS: TAMIFLU 75 MG PO ×2 (17:48→22:16)
--- NOTE | 2024-11-29 22:06 | PTCARENOTE ---
Pt received start of shift, HR SR/ST on telemetry. NSS infusing as ordered. Heparin resumed at 2039 according to protocol. Pt oriented to self, occasionally forgetful to time and place. Arousable to voice, drowsy. 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 Weak
cough. Pt w/ shallow breathing - 2L NC on pt satting 94%. Chronic rousseau draining kaylee urine w/ some sediment. Colostomy draining stool. Repositioning q2h.
Periods of apnea while sleeping, NC O2 upped to 4L.
[2024-11-30] VITALS (60 sets, daily range): BP systolic 74–157; BP diastolic 41–95
[2024-11-30] MEDS: TYLENOL 650 MG PO ×4 (00:11→21:31)
--- NOTE | 2024-11-30 00:42 | PTCARENOTE ---
Reassessed pt. PRN pain management - see DEC. Repositioning pt. Pt continues to be oriented to self but not always place or time.
[2024-11-30] MEDS: NSS 1000 IV (02:04)
[2024-11-30 03:39] LABS: Hematocrit 22.1 % (39.0-52.0); Hemoglobin 7.2 g/dL (13.0-18.0); Mean Corp Hgb Conc. 32.6 g/dL (33.0-37.0); Mean Corpuscular Hgb 28.5 pg (27.0-31.0); Mean Corpuscular Volume 87.4 fL (80.0-94.0); Platelet Count 221 10^3/uL (130-400); Red Blood Cell Count 2.53 10^6/uL (4.70-6.10); White Blood Cell Count 3.1 10^3/uL (4.8-10.8)
[2024-11-30 03:44] LABS: APTT 148.8 Sec (23.4-35.0)
[2024-11-30 04:25] LABS: Vancomycin Random 14.8 ug/ml
--- NOTE | 2024-11-30 04:30 | PTCARENOTE ---
Pt very tremulous, Pulseox probe hard to get accurate pleth and reading at times. Stool accumulating underneath colostomy wafer. Bag and wafer changed. Levo gtt as documented in worklist
[2024-11-30 04:34] LABS: Blood Urea Nitrogen 15 mg/dl (9-20); Calcium 7.7 mg/dl (8.4-10.2); Carbon Dioxide 24 mmol/L (22-30); Chloride 100 mmol/L (98-107); Estimated Creatinine Clearance 92 ml/min; Glucose 105 mg/dl (70-99); Magnesium 1.8 mg/dl (1.6-2.3); Potassium 3.9 mmol/L (3.5-5.1); Sodium 129 mmol/L (135-145); eGFR > 60.00
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
[2024-11-30] MEDS: VITAMIN C 500 MG PO (08:34)
[2024-11-30] MEDS: LIORESAL 10 MG PO ×2 (08:34→15:58)
[2024-11-30] MEDS: DAKIN'S SOLUTION 0.125% 1/4 STRENGTH 473 ML TOPICAL (08:36)
[2024-11-30] MEDS: DESENEX/MITRAZOL/ZEASORB 1 APPLIC TOPICAL ×2 (08:38→20:16)
[2024-11-30] MEDS: FEOSOL 325 MG PO (08:39)
[2024-11-30] MEDS: FETROJA 122.4 MG IV ×3 (08:39→15:58)
[2024-11-30] MEDS: THERAGRAN 1 TABLET PO (08:40)
[2024-11-30] MEDS: B COMPLEX w/VITAMIN C 1 CAPLET PO (08:40)
[2024-11-30] MEDS: PROTONIX 40 MG PO (08:40)
[2024-11-30] MEDS: FOLVITE 1 MG PO (08:40)
[2024-11-30] MEDS: SANTYL OINTMENT 1 APPLIC TOPICAL (08:41)
[2024-11-30] MEDS: ROXICODONE ORAL SOLUTION 2.5 MG PO ×2 (08:48→16:32)
[2024-11-30] MEDS: TAMIFLU 75 MG PO ×2 (08:55→20:16)
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
--- NOTE | 2024-11-30 08:56 | PHA.VAN.FU ---
Vancomycin Assessment / Plan
- Assessment
Renal Function: Stable
In the past 24 hrs, patient has been: Febrile
Concomitant Antimicrobials: cefiderocol, oseltamivir
- Assessment - Therapeutic Drug Monitoring
Random Level: 14.8 - drawn ~10H after initial dose of 1500mg
- Dosing Plan
Dosing by Level: Re-dose today (Vanc 750mg now then 750mg at 1800)
Will trial Q12H dosing today with improved SCR but will follow dose by level as patient may not follow population PK with comorbidities
- Monitoring Plan
Random Level: 12/01 06
- Follow Up
Pharmacy will continue to follow.
Vancomycin Follow UP
- -
Patient Age: 69
Patient Sex: Male
Vancomycin Day #: 2 (reconsulted )
Indication: Other
Requesting Provider: Dr. Kamara
Pertinent Antimicrobial Allergies:
cephalexin - unknown
Height / Weight:
Height 5 ft 9 in
Actual Weight 65.589 kg
Pertinent Past Medical History: Paraplegia, Sacral wounds, Laryngeal cancer (Gtube), MRSA bacteremia
- Vital Signs / Lab Results
Temp Pulse Resp BP Pulse Ox
101.1 F H 92 33 97/46 95
11/30/24 08:00 11/30/24 06:45 11/30/24 06:45 11/30/24 06:45 11/30/24 06:45
Lab Results - Hematology
11/28/24 11/29/24 11/29/24
06:13 03:13 03:34
WBC 3.6 L Cancelled 3.6 L
11/29/24 11/30/24
13:25 03:03
WBC 2.9 L 3.1 L
Lab Results - Chemistry
11/28/24 11/29/24 11/29/24
06:13 03:13 03:34
BUN 16 Cancelled 16
Creatinine 0.9 Cancelled 0.9
Estimated Creat Clear 72 Cancelled 72
Albumin
11/29/24 11/30/24
13:25 03:03
BUN 15 15
Creatinine 1.0 0.7
Estimated Creat Clear 65 92
Albumin 2.8 L
11/29/24
13:25
Lactic Acid 0.8
Microbiology Results
11/29/24 06:56 Blood Culture - Preliminary
Blood/Venous No Growth in 24 hours- Final report to follow
11/29/24 06:33 Blood Culture - Preliminary
Blood/Venous No Growth in 24 hours- Final report to follow
11/29/24 15:37 Influenza Types A & B (MURIEL) - Final
Nasal Swab Influenza A Positive, NAAT
11/28/24 14:02 Influenza Types A & B (MURIEL) - Final
Nasal Swab Negative for Influenza A & B, NAAT
Negative results must be combined with clinical observations
and patient history.
Nucleic Acid Amplification test (NAAT)performed on the
[employer] platform.
Therapeutic Drug Monitoring
Random Vancomycin 14.8 ug/ml 11/30/24 03:03
[2024-11-30] MEDS: NEURONTIN 100 MG PO (09:00)
--- NOTE | 2024-11-30 09:15 | PTCARENOTE ---
Complete assessment done and documented. Pt oriented x3, but has confused conversation and forgetfulness noted. Pt is paraplegic since the age of 21, and unable to move or feel from lower back down. 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 HR SR as per monitor. Pt
received this morning on levophed at 2 mcg/min. Pt presently weaned down to 1 mc/min, keeping MAP >65. Heparin drip infusing at 600 units/hr. Wound drsgs noted on sacrum and R +L ischium. Foam drsgs intact on heels/ankles. NS 2 100 ml//hr. Pt on 2
l n/c, lobes diminished throughout. Pt was able to swallow all medication pills this morning, no coughing noted. PEG and L colostomy intact. Pt has chronic urinary cath, draining sm to mod amt yellow urine with sediment. Pt's niece to room and
updated. Pt turned and made comfortable. Pt was given PRN pain med mod to severe pain in mid back. Magda Brown, Dr Skelton, and Dr Kamara in to see pt this morning.
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
[2024-11-30] MEDS: VANCOCIN 150 IV ×2 (10:24→17:50)
[2024-11-30 12:27] LABS: Hematocrit 21.7 % (39.0-52.0); Hemoglobin 7.3 g/dL (13.0-18.0)
[2024-11-30 12:42] LABS: APTT 177.6 Sec (23.4-35.0)
--- NOTE | 2024-11-30 13:51 | PTCARENOTE ---
Levophed weaned off at 1005, MAP 73. NS d/c'd. Heparin PTT elevated, Heparin drip off at 1230 for 1 hr, and was restarted at 1330 at 400u/hr. Mouth care and rousseau cared done. Pt fed breakfast, tolerating well, fair appetite. Dr Hutchison updated on pt,
and pt now cleared to go tele room when available.
[2024-11-30] MEDS: ProAmatine 2.5 MG PO ×2 (14:00→17:49)
[2024-11-30] MEDS: NEURONTIN 200 MG PO ×2 (15:59→21:31)
--- NOTE | 2024-11-30 17:38 | PTCARENOTE ---
Sacrum and R and L ischium wound care done as per wound care orders. See wound care notes. Room ready in tele room 335, report given.
[2024-11-30 19:36] LABS: APTT > 200 Sec (23.4-35.0)
[2024-11-30] MEDS: ProAmatine 5 MG PO (22:28)
[2024-11-30] MEDS: NSS 500 IV (22:47)
[2024-12-01] VITALS (8 sets, daily range): BP systolic 90–115; BP diastolic 43–62
[2024-12-01] MEDS: FETROJA 122.4 MG IV ×2 (01:03→08:36)
[2024-12-01] MEDS: LIORESAL 10 MG PO ×4 (01:03→23:07)
[2024-12-01] MEDS: TYLENOL 650 MG PO ×3 (03:18→19:56)
[2024-12-01 03:59] LABS: Hematocrit 21.2 % (39.0-52.0); Hemoglobin 7.2 g/dL (13.0-18.0); Mean Corpuscular Hgb 28.8 pg (27.0-31.0); Mean Corpuscular Volume 84.8 fL (80.0-94.0); Mean Platelet Volume 9.1 fL (7.4-10.4); Platelet Count 193 10^3/uL (130-400); Reticulocyte Count 0.5 % (0.4-2.8); White Blood Cell Count 2.6 10^3/uL (4.8-10.8)
[2024-12-01 04:19] LABS: APTT 45.5 Sec (23.4-35.0)
[2024-12-01 04:24] LABS: Blood Urea Nitrogen 16 mg/dl (9-20); Calcium 7.7 mg/dl (8.4-10.2); Carbon Dioxide 24 mmol/L (22-30); Chloride 98 mmol/L (98-107); Estimated Creatinine Clearance 81 ml/min; Glucose 83 mg/dl (70-99); Magnesium 1.8 mg/dl (1.6-2.3); Phosphorus 3.4 mg/dl (2.5-4.5); Potassium 3.2 mmol/L (3.5-5.1); Sodium 127 mmol/L (135-145); eGFR > 60.00
[2024-12-01 04:39] LABS: Vancomycin Random 16.1 ug/ml
[2024-12-01] MEDS: NSS 1000 IV ×2 (04:58→11:49)
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
[2024-12-01] MEDS: VITAMIN C 500 MG PO (07:24)
[2024-12-01] MEDS: ProAmatine 2.5 MG PO (07:24)
[2024-12-01] MEDS: PROTONIX 40 MG PO (07:24)
[2024-12-01] MEDS: FOLVITE 1 MG PO (07:24)
[2024-12-01] MEDS: B COMPLEX w/VITAMIN C 1 CAPLET PO (07:24)
[2024-12-01] MEDS: THERAGRAN 1 TABLET PO (07:24)
[2024-12-01] MEDS: SANTYL OINTMENT 1 APPLIC TOPICAL (07:25)
[2024-12-01] MEDS: TAMIFLU 75 MG PO ×2 (07:25→19:55)
[2024-12-01] MEDS: DESENEX/MITRAZOL/ZEASORB 1 APPLIC TOPICAL ×2 (07:26→08:06)
--- NOTE | 2024-12-01 07:58 | PHA.VAN.FU ---
Vancomycin Assessment / Plan
- Assessment
Renal Function: Stable
In the past 24 hrs, patient has been: Febrile
Concomitant Antimicrobials: cefiderocol, oseltamivir
- Assessment - Therapeutic Drug Monitoring
Random Level: 16.1 - drawn ~10H after previous dose of 750mg
- Dosing Plan
Dosing by Level: Re-dose today (Vanc 1000mg - trial once daily dosing today)
Patient had accumulation on twice daily dosing of Vanc
Vanc 750mg Q12H predicted AUC 470, trough 12.8 based on weight/est CrCl --> suspect patient does not follow population PK and that CrCl may be overestimated
- Monitoring Plan
Random Level: 12/02 0600
- Follow Up
Pharmacy will continue to follow.
Vancomycin Follow UP
- -
Patient Age: 69
Patient Sex: Male
Vancomycin Day #: 3 (reconsulted )
Indication: Other
Requesting Provider: Dr. Kamara
Pertinent Antimicrobial Allergies:
cephalexin - unknown
Height / Weight:
Height 5 ft 9 in
Actual Weight 65.589 kg
Pertinent Past Medical History: Paraplegia, Sacral wounds, Laryngeal cancer (Gtube), MRSA bacteremia
- Vital Signs / Lab Results
Temp Pulse Resp BP Pulse Ox
97.7 F 75 15 94/43 95
12/01/24 07:39 12/01/24 07:39 12/01/24 07:39 12/01/24 07:39 12/01/24 07:39
Lab Results - Hematology
11/29/24 11/29/24 11/29/24
03:13 03:34 13:25
WBC Cancelled 3.6 L 2.9 L
11/30/24 12/01/24
03:03 03:41
WBC 3.1 L 2.6 L
Lab Results - Chemistry
11/29/24 11/29/24 11/29/24
03:13 03:34 13:25
BUN Cancelled 16 15
Creatinine Cancelled 0.9 1.0
Estimated Creat Clear Cancelled 72 65
Albumin 2.8 L
11/30/24 12/01/24
03:03 03:41
BUN 15 16
Creatinine 0.7 0.8
Estimated Creat Clear 92 81
Albumin
11/29/24
13:25
Lactic Acid 0.8
Microbiology Results
11/29/24 06:56 Blood Culture - Preliminary
Blood/Venous No Growth in 48 hours- Final report to follow
11/29/24 06:33 Blood Culture - Preliminary
Blood/Venous No Growth in 48 hours- Final report to follow
11/29/24 15:37 Blood Culture - Preliminary
Blood/Venous No Growth in 24 hours- Final report to follow
11/29/24 15:37 Influenza Types A & B (MURIEL) - Final
Nasal Swab Influenza A Positive, NAAT
Therapeutic Drug Monitoring
Random Vancomycin 16.1 ug/ml 12/01/24 03:41
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
[2024-12-01] MEDS: NEURONTIN 200 MG PO ×3 (08:41→23:07)
[2024-12-01] MEDS: DAKIN'S SOLUTION 0.125% 1/4 STRENGTH 473 ML TOPICAL (08:44)
[2024-12-01] MEDS: VANCOCIN 200 IV (11:13)
[2024-12-01 11:18] LABS: APTT 135.3 Sec (23.4-35.0)
[2024-12-01] MEDS: KCL 40 MEQ PO (11:50)
[2024-12-01] MEDS: ProAmatine 5 MG PO ×2 (11:52→17:14)
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
--- NOTE | 2024-12-01 14:59 | CM ---
Patient seen at bedside with sister and neice/caregiver. Patient family indicated that they have been talking to several facilities in [place]. [facility] [phone] had just talked to them and they were very interested in that facility. Also
they have looked at [facility]. CM will update referrals in all scripts and continue to follow for discharge planning needs.
Plan; SNF when medically appropriate
--- NOTE | 2024-12-01 16:54 | W.PN.GS2 ---
Today's Communication / Plan
-
local wound care
Assessment / Plan
-
Pt seen and evaluated at bedside.
Sacral/ischial wounds evaluated. Right side clean without new necrosis
Left ischial wound with rim of necrotic skin, no sensation
Hep gtt held from 10am
Procedure:
The pt was rolled onto his right side and the dressings were removed
The necrotic skin on the left ishcial wound was sharpy debrided with a #10 blade back to healthy tissue, skin, subcutaneous tissue, fascia and muscle was debrided. About 1cm x 4cm area debrided.
The wound was hemostatic.
Dressings replaced
Plan:
cont local wound care
abx per ID
D/w pt and daughter
Pls call if need for further debridement
Subjective Data
-
Date of Service: December 01, 2024
Pt with new necrotic area to left ischial pressure wound
Objective Data
-
Intake and Output
11/30/24 12/01/24 12/02/24
06:59 06:59 06:59
Intake Total 1693.8 / 1807.3 3770.3 / 3770.3
Output Total 520 / 820 1555 / 1555
Balance 1173.8 / 987.3 2215.3 / 2215.3
Intake:
Oral fluids 120 / 120 1750 / 1750
IV fluids (Total) 953.8 / 1067.3 1678.3 / 1678.3
Heparin 75 / 81 852 / 852
Levo 78.8 / 86.3 26.3 / 26.3
Nss 1,000 ml @ 100 mls/hr IV . 800 / 900 300 / 300
Q10H LEXI Rx#:[id number]
IV piggybacks 620 / 620 342 / 342
Output:
Urine, Bolaños 520 / 820 1485 / 1485
Urine, Voided
Vital Signs
Temp Pulse Resp BP Pulse Ox
98.3 F 70 16 106/45 98
12/01/24 15:04 12/01/24 15:04 12/01/24 15:04 12/01/24 15:04 12/01/24 15:04
Lab Results
12/01/24 03:41
12/01/24 03:41
Calcium 7.7 mg/dl (8.4-10.2) L 12/01/24 03:41
Phosphorus 3.4 mg/dl (2.5-4.5) 12/01/24 03:41
Magnesium 1.8 mg/dl (1.6-2.3) 12/01/24 03:41
Total Bilirubin 0.5 mg/dl (0.2-1.3) 11/29/24 13:25
AST 36 U/L (17-59) 11/29/24 13:25
ALT 29 U/L (0-50) 11/29/24 13:25
Alkaline Phosphatase 81 U/L (38-126) 11/29/24 13:25
Total Protein 6.4 g/dl (6.3-8.2) 11/29/24 13:25
Albumin 2.8 g/dl (3.5-5.0) L 11/29/24 13:25
Physical Exam
-
Right ischial and sacral wounds without new necrosis, left ischial wound with lateral rim of necrotic skin and muscle
[2024-12-01] MEDS: CIPRO 750 MG PO (19:54)
[2024-12-01] MEDS: ELIQUIS 5 MG PO (19:54)
--- NOTE | 2024-12-01 23:30 | PTCARENOTE ---
Site care provided to Left PEG tube, cleansed with saline, new split dressing placed. Colostomy with large amount of semi-formed stool -- pouch leaking and burst. New pouch applied.
[2024-12-02] VITALS (9 sets, daily range): BP systolic 76–124; BP diastolic 32–62
[2024-12-02] MEDS: NSS 1000 IV (01:12)
[2024-12-02] MEDS: TYLENOL 650 MG PO ×3 (01:56→14:54)
[2024-12-02] MEDS: ProAmatine 5 MG PO ×4 (03:58→17:29)
[2024-12-02] MEDS: NSS 500 IV (04:01)
--- NOTE | 2024-12-02 04:46 | PTCARENOTE ---
Pt was tearful and kept stating 'Just let me '. Pt is still currently a full code and confused. Will discuss with dayshift nurse.
[2024-12-02 05:19] LABS: Hematocrit 20.1 % (39.0-52.0); Hemoglobin 6.6 g/dL (13.0-18.0); Mean Corp Hgb Conc. 33.8 g/dL (33.0-37.0); Mean Corpuscular Hgb 29.1 pg (27.0-31.0); Mean Corpuscular Volume 85.9 fL (80.0-94.0); Mean Platelet Volume 9.5 fL (7.4-10.4); Platelet Count 167 10^3/uL (130-400); Red Blood Cell Count 2.27 10^6/uL (4.70-6.10); Red Cell Dist. Width 17.5 % (11.5-14.5); White Blood Cell Count 1.8 10^3/uL (4.8-10.8)
[2024-12-02 06:16] LABS: % Lymphocytes 10.7 % (20.5-51.1); % Monocytes 3.1 % (1.7-9.3); % Neutrophils 85.2 % (42.2-75.2); Absolute Lymphocytes 0.2 10^3/uL (1.2-3.4); Absolute Monocytes 0.1 10^3/uL (0.1-0.6); Absolute Neutrophils 1.7 10^3/uL (1.4-6.5); Hematocrit 20.5 % (39.0-52.0); Hemoglobin 6.6 g/dL (13.0-18.0); Mean Corp Hgb Conc. 32.2 g/dL (33.0-37.0); Mean Corpuscular Volume 86.9 fL (80.0-94.0); Mean Platelet Volume 8.8 fL (7.4-10.4); Nucleated Red Blood Cells % 0 % (-); Platelet Count 150 10^3/uL (130-400); Red Blood Cell Count 2.36 10^6/uL (4.70-6.10); Red Cell Dist. Width 17.5 % (11.5-14.5)
--- NOTE | 2024-12-02 06:17 | PTCARENOTE ---
AM labs with critical WBC 1.8, Hgb 6.6, Hct 20.1. Type and screen needed, none on file. TRELL Dash notified, consent obtained, this RN witnessed consent from brother Renato. Awaiting labs.
[2024-12-02 06:25] LABS: Vancomycin Random 13.6 ug/ml
--- NOTE | 2024-12-02 06:27 | W.PN.UPDATE ---
Update Note
Progress Note Update
morning labs with HH 6.6
Type and screen updated.
Pt isn't really aao right now, so consent was obtained from brother Renato Gonsalez. He gives consent. States pt has had transfusions in past- recently a couple weeks ago
[2024-12-02 06:34] LABS: Blood Urea Nitrogen 14 mg/dl (9-20); Calcium 6.9 mg/dl (8.4-10.2); Carbon Dioxide 22 mmol/L (22-30); Chloride 106 mmol/L (98-107); Estimated Creatinine Clearance 92 ml/min; Glucose 86 mg/dl (70-99); Magnesium 1.7 mg/dl (1.6-2.3); Phosphorus 2.2 mg/dl (2.5-4.5); Potassium 3.1 mmol/L (3.5-5.1); Sodium 132 mmol/L (135-145); eGFR > 60.00
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
[2024-12-02] MEDS: CALCIUM GLUCONATE 100 IV (07:34)
--- NOTE | 2024-12-02 07:55 | PHA.VAN.FU ---
Vancomycin Assessment / Plan
- Assessment
Renal Function: Stable
WBC's are: Trending Down
In the past 24 hrs, patient has been: Febrile (102.7F)
Concomitant Antimicrobials: CIPROFLOXACIN
- Assessment - Therapeutic Drug Monitoring
Random Level: 13.6
- Dosing Plan
Dosing by Level: Re-dose today (1000MG)
- Monitoring Plan
Random Level: 12/03 IN AM
- Follow Up
Pharmacy will continue to follow.
Vancomycin Follow UP
- -
Patient Age: 69
Patient Sex: Male
Vancomycin Day #: 4 (reconsulted )
Indication: Other
Requesting Provider: Dr. Kamara
Pertinent Antimicrobial Allergies:
cephalexin - unknown
Height / Weight:
Height 5 ft 9 in
Actual Weight 65.589 kg
Pertinent Past Medical History: Paraplegia, Sacral wounds, Laryngeal cancer (Gtube), MRSA bacteremia
- Vital Signs / Lab Results
Temp Pulse Resp BP Pulse Ox
99 F 83 16 86/55 96
12/02/24 07:45 12/02/24 07:45 12/02/24 07:45 12/02/24 07:45 12/02/24 07:45
Lab Results - Hematology
11/29/24 11/30/24 12/01/24
13: 03:03 03:41
WBC 2.9 L 3.1 L 2.6 L
12/02/24 12/02/24
05:05 05:54
WBC 1.8 L* 2.0 L*
Lab Results - Chemistry
11/29/24 11/30/24 12/01/24
13:25 03:03 03:41
BUN 15 15 16
Creatinine 1.0 0.7 0.8
Estimated Creat Clear 65 92 81
Albumin 2.8 L
12/02/24
05:05
BUN 14
Creatinine 0.7
Estimated Creat Clear 92
Albumin
11/29/24
13:25
Lactic Acid 0.8
Microbiology Results
11/29/24 06:56 Blood Culture - Preliminary
Blood/Venous No Growth in 72 hours- Final report to follow
11/29/24 06:33 Blood Culture - Preliminary
Blood/Venous No Growth in 72 hours- Final report to follow
11/29/24 15:37 Blood Culture - Preliminary
Blood/Venous No Growth in 48 hours- Final report to follow
Therapeutic Drug Monitoring
Random Vancomycin 13.6 ug/ml 12/02/24 05:05
[2024-12-02] MEDS: ELIQUIS 5 MG PO ×2 (08:14→21:07)
[2024-12-02] MEDS: FEOSOL 325 MG PO (08:15)
[2024-12-02] MEDS: CIPRO 750 MG PO ×2 (08:15→21:07)
[2024-12-02] MEDS: NEURONTIN 200 MG PO ×3 (08:15→21:07)
[2024-12-02] MEDS: VITAMIN C 500 MG PO (08:15)
[2024-12-02] MEDS: TAMIFLU 75 MG PO ×2 (08:15→21:07)
[2024-12-02] MEDS: PROTONIX 40 MG PO (08:15)
[2024-12-02] MEDS: B COMPLEX w/VITAMIN C 1 CAPLET PO (08:15)
[2024-12-02] MEDS: THERAGRAN 1 TABLET PO (08:17)
[2024-12-02] MEDS: LIORESAL 10 MG PO ×3 (08:17→21:07)
[2024-12-02] MEDS: SANTYL OINTMENT 1 APPLIC TOPICAL (08:17)
[2024-12-02] MEDS: FOLVITE 1 MG PO (08:17)
[2024-12-02] MEDS: DAKIN'S SOLUTION 0.125% 1/4 STRENGTH 1 ML TOPICAL (08:18)
[2024-12-02] MEDS: DESENEX/MITRAZOL/ZEASORB 1 APPLIC TOPICAL ×2 (08:18→21:08)
[2024-12-02] MEDS: MAGNESIUM SULFATE 50 IV (08:33)
[2024-12-02] MEDS: POTASSIUM PHOSPHATE 259.0909 MEQ IV (10:38)
[2024-12-02] MEDS: VANCOCIN 200 IV (11:22)
[2024-12-02 12:30] LABS: Vitamin D, 25-OH*** 19.5 ng/mL (30-80)
[2024-12-02 13:16] LABS: Hematocrit 22.9 % (39.0-52.0); Hemoglobin 7.7 g/dL (13.0-18.0)
[2024-12-03 04:00] VITALS: BP 94/48
[2024-12-03] MEDS: TYLENOL 650 MG PO ×3 (04:07→16:03)
[2024-12-03 06:09] LABS: Hemoglobin 8.1 g/dL (13.0-18.0); Mean Corp Hgb Conc. 33.8 g/dL (33.0-37.0); Mean Corpuscular Hgb 28.4 pg (27.0-31.0); Mean Corpuscular Volume 84.2 fL (80.0-94.0); Mean Platelet Volume 8.6 fL (7.4-10.4); Platelet Count 132 10^3/uL (130-400); Red Blood Cell Count 2.85 10^6/uL (4.70-6.10); Red Cell Dist. Width 16.9 % (11.5-14.5); White Blood Cell Count 1.2 10^3/uL (4.8-10.8)
[2024-12-03 06:18] LABS: Blood Urea Nitrogen 12 mg/dl (9-20); Carbon Dioxide 23 mmol/L (22-30); Chloride 100 mmol/L (98-107); Estimated Creatinine Clearance 108 ml/min; Glucose 153 mg/dl (70-99); Magnesium 1.8 mg/dl (1.6-2.3); Phosphorus 1.8 mg/dl (2.5-4.5); Potassium 3.5 mmol/L (3.5-5.1); Sodium 128 mmol/L (135-145); eGFR > 60.00
[2024-12-03 06:44] LABS: Vancomycin Random 11.5 ug/ml
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
[2024-12-03 07:30] VITALS: BP 87/44
[2024-12-03] MEDS: ELIQUIS 5 MG PO ×2 (07:47→20:26)
[2024-12-03] MEDS: TAMIFLU 75 MG PO ×2 (07:47→20:26)
[2024-12-03] MEDS: FEOSOL 325 MG PO (07:47)
[2024-12-03] MEDS: PROTONIX 40 MG PO (07:47)
[2024-12-03] MEDS: NEURONTIN 200 MG PO ×3 (07:47→21:12)
[2024-12-03] MEDS: LIORESAL 10 MG PO ×3 (07:47→21:12)
[2024-12-03] MEDS: FOLVITE 1 MG PO (07:47)
[2024-12-03] MEDS: VITAMIN C 500 MG PO (07:47)
[2024-12-03] MEDS: THERAGRAN 1 TABLET PO (07:48)
[2024-12-03] MEDS: ProAmatine 5 MG PO ×3 (07:48→17:10)
[2024-12-03] MEDS: CIPRO 750 MG PO ×2 (07:48→20:26)
[2024-12-03] MEDS: B COMPLEX w/VITAMIN C 1 CAPLET PO (07:48)
--- NOTE | 2024-12-03 07:49 | PHA.VAN.FU ---
Vancomycin Assessment / Plan
- Assessment
Renal Function: Stable
WBC's are: Trending Down
In the past 24 hrs, patient has been: Febrile (100.8F)
Concomitant Antimicrobials: CIPROFLOXACIN
- Assessment - Therapeutic Drug Monitoring
Random Level: 11.5
- Dosing Plan
Dosing by Level: Re-dose today (1250MG)
- Monitoring Plan
Random Level: 12/04 IN AM
- Follow Up
Pharmacy will continue to follow.
Vancomycin Follow UP
- -
Patient Age: 69
Patient Sex: Male
Vancomycin Day #: 5 (reconsulted )
Indication: Other
Requesting Provider: Dr. Kamara
Pertinent Antimicrobial Allergies:
cephalexin - unknown
Height / Weight:
Height 5 ft 9 in
Actual Weight 65.589 kg
Pertinent Past Medical History: Paraplegia, Sacral wounds, Laryngeal cancer (Gtube), MRSA bacteremia
- Vital Signs / Lab Results
Temp Pulse Resp BP Pulse Ox
100.4 F H 93 18 94/48 98
12/03/24 06:23 12/03/24 04:00 12/03/24 04:00 12/03/24 04:00 12/03/24 04:00
Lab Results - Hematology
12/01/24 12/02/24 12/02/24
03:41 05:05 05:54
WBC 2.6 L 1.8 L* 2.0 L*
12/03/24
05:45
WBC 1.2 L*
Lab Results - Chemistry
12/01/24 12/02/24 12/03/24
03:41 05:05 05:45
BUN 16 14 12
Creatinine 0.8 0.7 0.6 L
Estimated Creat Clear 81 92 108
Microbiology Results
11/29/24 06:56 Blood Culture - Preliminary
Blood/Venous No Growth in 4 days- Final report to follow
11/29/24 06:33 Blood Culture - Preliminary
Blood/Venous No Growth in 4 days- Final report to follow
11/29/24 15:37 Blood Culture - Preliminary
Blood/Venous No Growth in 72 hours- Final report to follow
Therapeutic Drug Monitoring
Random Vancomycin 11.5 ug/ml 12/03/24 05:45
[2024-12-03] MEDS: DAKIN'S SOLUTION 0.125% 1/4 STRENGTH 1 ML TOPICAL (07:50)
[2024-12-03] MEDS: SANTYL OINTMENT 1 APPLIC TOPICAL (07:50)
[2024-12-03] MEDS: DESENEX/MITRAZOL/ZEASORB 1 APPLIC TOPICAL ×2 (07:51→20:26)
[2024-12-03] MEDS: VITAMIN D3 (cholecalciferol) 10 MCG PO (08:06)
[2024-12-03 08:23] LABS: % Lymphocytes 13.9 % (20.5-51.1); % Neutrophils 80.1 % (42.2-75.2)
[2024-12-03 08:24] LABS: Absolute Lymphocytes 0.1 10^3/uL (1.2-3.4); Nucleated Red Blood Cells % 0 % (-)
[2024-12-03 08:25] LABS: Absolute Neutrophils 0.8 10^3/uL (1.4-6.5)
[2024-12-03] MEDS: POTASSIUM PHOSPHATE 259.0909 MEQ IV (08:44)
[2024-12-03] MEDS: CALCIUM GLUCONATE 100 IV (08:44)
[2024-12-03] MEDS: VANCOCIN 275 MG IV (10:20)
[2024-12-03 11:30] VITALS: BP 92/49
[2024-12-03 12:31] LABS: ALT (SGPT) 88 U/L (0-50); AST (SGOT) 237 U/L (17-59); Albumin 1.7 g/dl (3.5-5.0); Alkaline Phosphatase 350 U/L (38-126); Direct Bilirubin 0.2 mg/dl (0.0-0.4); Total Bilirubin 0.5 mg/dl (0.2-1.3); Total Protein 4.7 g/dl (6.3-8.2)
[2024-12-03 12:40] LABS: NT-proBNP 746 pg/ml
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
[2024-12-03] MEDS: FLEXBUMIN 100 IV (15:07)
[2024-12-03 16:00] VITALS: BP 127/46
[2024-12-03 19:00] VITALS: BP 105/36
[2024-12-03 23:00] VITALS: BP 92/39
[2024-12-04] MEDS: TYLENOL 650 MG PO ×2 (01:38→16:02)
[2024-12-04 03:00] VITALS: BP 91/36
--- NOTE | 2024-12-04 05:43 | PTCARENOTE ---
Patient tearful this AM expressing to this RN 'I know I'm dying, I need to talk to my family.' 1:1 support provided. Expressed to patient the importance of talking with family to discuss his goals. Patient tells this RN that he plans to speak with
family today. Patient reports 'feeling better' after speaking with this nurse. Tap call jaeger provided as well this shift d/t inability to press call jaeger button on remote. Plan of care ongoing.
[2024-12-04 05:53] LABS: Vancomycin Random 11.3 ug/ml
[2024-12-04 05:54] LABS: ALT (SGPT) 89 U/L (0-50); AST (SGOT) 219 U/L (17-59); Albumin 2.1 g/dl (3.5-5.0); Alkaline Phosphatase 289 U/L (38-126); Blood Urea Nitrogen 10 mg/dl (9-20); Calcium 7.3 mg/dl (8.4-10.2); Carbon Dioxide 24 mmol/L (22-30); Chloride 106 mmol/L (98-107); Estimated Creatinine Clearance 108 ml/min; Glucose 137 mg/dl (70-99); Magnesium 1.7 mg/dl (1.6-2.3); Phosphorus 1.8 mg/dl (2.5-4.5); Potassium 3.5 mmol/L (3.5-5.1); Sodium 134 mmol/L (135-145); Total Bilirubin 0.3 mg/dl (0.2-1.3); Total Protein 4.5 g/dl (6.3-8.2); eGFR > 60.00
[2024-12-04 06:00] VITALS: BMI 23.7
[2024-12-04 06:08] LABS: Hemoglobin 7.4 g/dL (13.0-18.0); Mean Corp Hgb Conc. 33.6 g/dL (33.0-37.0); Mean Corpuscular Hgb 28.7 pg (27.0-31.0); Mean Corpuscular Volume 85.3 fL (80.0-94.0); Platelet Count 110 10^3/uL (130-400); Red Blood Cell Count 2.58 10^6/uL (4.70-6.10); White Blood Cell Count 1.9 10^3/uL (4.8-10.8)
[2024-12-04 07:39] VITALS: BP 112/55
[2024-12-04] MEDS: ProAmatine 5 MG PO ×3 (07:49→17:57)
[2024-12-04] MEDS: LIORESAL 10 MG PO ×3 (07:50→21:30)
[2024-12-04] MEDS: VITAMIN C 500 MG PO (07:50)
[2024-12-04] MEDS: VITAMIN D3 (cholecalciferol) 10 MCG PO (07:50)
[2024-12-04] MEDS: B COMPLEX w/VITAMIN C 1 CAPLET PO (07:50)
[2024-12-04] MEDS: PROTONIX 40 MG PO (07:50)
[2024-12-04] MEDS: ELIQUIS 5 MG PO ×2 (07:50→20:35)
[2024-12-04] MEDS: NEURONTIN 200 MG PO ×3 (07:50→21:30)
[2024-12-04] MEDS: CIPRO 750 MG PO ×2 (07:51→20:35)
[2024-12-04] MEDS: FOLVITE 1 MG PO (07:51)
[2024-12-04] MEDS: SANTYL OINTMENT 1 APPLIC TOPICAL (07:51)
[2024-12-04] MEDS: TAMIFLU 75 MG PO ×2 (07:51→20:35)
[2024-12-04] MEDS: THERAGRAN 1 TABLET PO (07:51)
[2024-12-04] MEDS: FEOSOL 325 MG PO (07:51)
[2024-12-04] MEDS: DESENEX/MITRAZOL/ZEASORB 1 APPLIC TOPICAL ×2 (07:52→20:36)
[2024-12-04] MEDS: DAKIN'S SOLUTION 0.125% 1/4 STRENGTH 50 ML TOPICAL (07:52)
[2024-12-04] MEDS: ROXICODONE ORAL SOLUTION 2.5 MG PO ×2 (07:54→16:20)
[2024-12-04 08:06] LABS: % Immature Granulocytes 0.5 % (0-0.5); % Lymphocytes 9.2 % (20.5-51.1); % Monocytes 2.7 % (1.7-9.3); % Neutrophils 87.6 % (42.2-75.2); Absolute Lymphocytes 0.2 10^3/uL (1.2-3.4); Absolute Monocytes 0.1 10^3/uL (0.1-0.6); Absolute Neutrophils 1.6 10^3/uL (1.4-6.5); Nucleated Red Blood Cells % 0 % (-)
--- NOTE | 2024-12-04 08:19 | PHA.VAN.FU ---
Vancomycin Assessment / Plan
- Assessment
Renal Function: SCR Decreasing
Concomitant Antimicrobials: ciprofloxacin, oseltamivir
- Assessment - Therapeutic Drug Monitoring
Random Level: 11.3 - drawn ~18H after previous dose of 1250mg
Level decreased with 1000mg once daily dosing
Level somewhat maintained with 1250mg dosing yesterday but suspect may become subtherapeutic at full 24H interval
- Dosing Plan
Dosing by Level: Re-dose today (Vanc 750mg x1 now and at 1800)
Will re-try 750mg BID dosing now that SCR improving - patient may still be borderline between Q12 and Q24H interval
- Monitoring Plan
Random Level: 12/05 0600
- Follow Up
Pharmacy will continue to follow.
Vancomycin Follow UP
- -
Patient Age: 69
Patient Sex: Male
Vancomycin Day #: 6 (reconsulted )
Indication: Other
Requesting Provider: Dr. Kamara
Pertinent Antimicrobial Allergies:
cephalexin - unknown
Height / Weight:
Height 5 ft 9 in
Actual Weight 72.756 kg
Pertinent Past Medical History: Paraplegia, Sacral wounds, Laryngeal cancer (Gtube), MRSA bacteremia
- Vital Signs / Lab Results
Temp Pulse Resp BP Pulse Ox
97.7 F 82 16 112/55 97
12/04/24 07:39 12/04/24 07:49 12/04/24 07:39 12/04/24 07:49 12/04/24 07:39
Lab Results - Hematology
12/02/24 12/02/24 12/03/24
05:05 05:54 05:45
WBC 1.8 L* 2.0 L* 1.2 L*
12/04/24
04:31
WBC 1.9 L*
Lab Results - Chemistry
12/02/24 12/03/24 12/04/24
05:05 05:45 04:31
BUN 14 12 10
Creatinine 0.7 0.6 L 0.5 L
Estimated Creat Clear 92 108 108
Albumin 1.7 L 2.1 L
Microbiology Results
11/29/24 06:56 Blood Culture - Final
Blood/Venous No Growth - Final Report
11/29/24 06:33 Blood Culture - Final
Blood/Venous No Growth - Final Report
11/29/24 15:37 Blood Culture - Preliminary
Blood/Venous No Growth in 4 days- Final report to follow
Therapeutic Drug Monitoring
Random Vancomycin 11.3 ug/ml 12/04/24 04:32
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
[2024-12-04] MEDS: VANCOCIN 150 IV ×2 (09:19→17:56)
--- NOTE | 2024-12-04 11:27 | HOSPNOTE ---
Addendum entered by Justina Gil RN 12/04/24 12:56:
Met with patient and niece and explained hospice and the philosophy. The rest of the family needs to discuss and decide if patient will go home with hospice or facility placement. More information to follow after family makes a decision.
Original Note:
Referral received will speak with patient and family and discuss hospice and the philosophy. More information to follow.
--- NOTE | 2024-12-04 11:41 | CM ---
Patient with Hx Paraplegia, Laryngeal Cancer s/p chemo/radiation with Dx Stage IV infected sacral wound with possible osteomyelitis, Influenza A, anasarca, DVT RUE, anemia, leukopenia/neutropenia.
CM Consult: Hospice
Met with patient and 4 family members including his brothers Renato & Miguel.
Explained hospice philosophy & benefits.
Family unsure if they want home vs SNF.
Explained SNF would be private pay when in hospice.
Offered Hospice agency choices- patient & family chose Hospice.
Spoke with Justina, Hospice; she will meet with the patient/family today.
Plan follow up after seen by Hospice.
[2024-12-04 11:52] VITALS: BP 106/47
[2024-12-04 15:50] VITALS: BP 94/65
[2024-12-04 19:00] VITALS: BP 95/44
[2024-12-04 23:00] VITALS: BP 95/45
[2024-12-05 03:00] VITALS: BP 112/51
[2024-12-05] MEDS: ROXICODONE ORAL SOLUTION 2.5 MG PO ×2 (05:34→10:40)
[2024-12-05 05:57] VITALS: BMI 22.8
[2024-12-05 07:05] VITALS: BP 96/47
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
[2024-12-05 08:53] LABS: % Eosinophils 0.4 % (0-6); % Immature Granulocytes 0.4 % (0-0.5); % Lymphocytes 8.7 % (20.5-51.1); % Monocytes 3.9 % (1.7-9.3); % Neutrophils 86.6 % (42.2-75.2); Absolute Lymphocytes 0.2 10^3/uL (1.2-3.4); Absolute Monocytes 0.1 10^3/uL (0.1-0.6); Hematocrit 23.5 % (39.0-52.0); Hemoglobin 7.6 g/dL (13.0-18.0); Mean Corp Hgb Conc. 32.3 g/dL (33.0-37.0); Mean Corpuscular Hgb 27.8 pg (27.0-31.0); Mean Corpuscular Volume 86.1 fL (80.0-94.0); Mean Platelet Volume 9.9 fL (7.4-10.4); Nucleated Red Blood Cells % 0 % (-); Platelet Count 131 10^3/uL (130-400); Red Blood Cell Count 2.73 10^6/uL (4.70-6.10); Red Cell Dist. Width 17.2 % (11.5-14.5); White Blood Cell Count 2.3 10^3/uL (4.8-10.8)
[2024-12-05 08:59] LABS: ALT (SGPT) 101 U/L (0-50); AST (SGOT) 217 U/L (17-59); Albumin 2.1 g/dl (3.5-5.0); Alkaline Phosphatase 437 U/L (38-126); Blood Urea Nitrogen 10 mg/dl (9-20); Calcium 7.7 mg/dl (8.4-10.2); Carbon Dioxide 27 mmol/L (22-30); Chloride 101 mmol/L (98-107); Estimated Creatinine Clearance 115 ml/min; Glucose 137 mg/dl (70-99); Magnesium 1.7 mg/dl (1.6-2.3); Potassium 3.9 mmol/L (3.5-5.1); Sodium 132 mmol/L (135-145); Total Bilirubin 0.3 mg/dl (0.2-1.3); Total Protein 4.7 g/dl (6.3-8.2); eGFR > 60.00
[2024-12-05 09:01] LABS: Vancomycin Random 12.1 ug/ml
[2024-12-05] MEDS: ProAmatine 5 MG PO ×3 (09:04→18:26)
[2024-12-05] MEDS: LIORESAL 10 MG PO ×2 (09:04→15:06)
[2024-12-05] MEDS: PROTONIX 40 MG PO (09:04)
[2024-12-05] MEDS: TAMIFLU 75 MG PO (09:04)
[2024-12-05] MEDS: NEURONTIN 200 MG PO ×2 (09:05→15:06)
[2024-12-05] MEDS: ELIQUIS 5 MG PO (09:05)
[2024-12-05] MEDS: CIPRO 750 MG PO (09:05)
[2024-12-05] MEDS: SANTYL OINTMENT 1 APPLIC TOPICAL (09:06)
[2024-12-05] MEDS: DAKIN'S SOLUTION 0.125% 1/4 STRENGTH 50 ML TOPICAL (09:06)
[2024-12-05] MEDS: DESENEX/MITRAZOL/ZEASORB 1 APPLIC TOPICAL ×2 (09:07→21:48)
[2024-12-05] MEDS: FEOSOL PO (09:17)
[2024-12-05] MEDS: B COMPLEX w/VITAMIN C PO (09:17)
[2024-12-05] MEDS: THERAGRAN PO (09:18)
[2024-12-05] MEDS: FOLVITE PO (09:18)
[2024-12-05] MEDS: VITAMIN C PO (09:18)
[2024-12-05] MEDS: VITAMIN D3 (cholecalciferol) PO (09:19)
--- NOTE | 2024-12-05 14:58 | HOSPNOTE ---
Spoke with family and patient and they would like to seek placement with hospice services. Will continue to follow and updated CM to please send referrals to facilities.
[2024-12-05 15:05] VITALS: BP 101/48
[2024-12-05] MEDS: ROXICODONE 5 MG PO (15:07)
--- NOTE | 2024-12-05 15:24 | VATNOTE ---
Port reaccess deferred at this time due to pt transition to comfort care/hospice.
[2024-12-05] MEDS: LIORESAL PO (21:51)
[2024-12-05] MEDS: NEURONTIN PO (21:52)
[2024-12-05 23:00] VITALS: BP 95/45
--- NOTE | 2024-12-05 23:13 | PTCARENOTE ---
This RN went to check on patient and found that tube feeding was leaking all over patient. Patient's PEG tube had fallen out. Feeding stopped. TRELL Gale notified. This RN was directed to place a rousseau in the stoma to keep it open. Rousseau
placed using sterile technique. Care ongoing.
[2024-12-05] MEDS: TYLENOL 650 MG PO (23:51)
[2024-12-06] MEDS: ROBINUL 0.2 MG IV (05:26)
[2024-12-06 06:00] VITALS: BMI 22.8
[2024-12-06 07:05] VITALS: BP 88/53
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
[2024-12-06] MEDS: ProAmatine 5 MG PO (08:55)
[2024-12-06] MEDS: PROTONIX 40 MG PO (08:55)
[2024-12-06] MEDS: SANTYL OINTMENT 1 APPLIC TOPICAL (08:56)
[2024-12-06] MEDS: DAKIN'S SOLUTION 0.125% 1/4 STRENGTH 1 ML TOPICAL (08:56)
[2024-12-06] MEDS: DESENEX/MITRAZOL/ZEASORB 1 APPLIC TOPICAL (08:56)
[2024-12-06] MEDS: NEURONTIN 200 MG PO (08:56)
[2024-12-06] MEDS: LIORESAL 10 MG PO (08:56)
[2024-12-06] MEDS: MORPHINE SULFATE 1 MG IV ×3 (09:10→11:56)
--- NOTE | 2024-12-06 10:11 | HOSPNOTE ---
Spoke with family and Attending and the new plan is for patient to remain here on hospice services as inpatient. The PEG tube will not be replaced and family and patient in agreement. Admissions was called and new hospice chart started. Patient will
remain here on hospice for pain management and excessive secretions. CM updated.
[2024-12-06] MEDS: MORPHINE 100 IV (12:26)
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
[2024-12-06 12:46] VITALS: BP 127/57
--- NOTE | 2024-12-06 12:54 | CM ---
tt from [facility]
patient will be inpatient hospice
PLAN: Inpatient Hospice
[2024-12-06] MEDS: ProAmatine PO (13:03)
== END 2024-12-06 13:14 | disposition hospice, inpatient (51) | DRG 570 ==
LOC: 3 WEST ACU 07:16
PROVIDERS: Internal Medicine; Internal Medicine Infectious Disease; Nurse Practitioner Family; Surgery; ADMITTING PHYSICIAN Hospitalist; ATTENDING PHYSICIAN Hospitalist; CONSULT PHYSICIAN Surgery; EMERGENCY PHYSICIAN Emergency Medicine; FAMILY PHYSICIAN Family Medicine; OTHER PHYSICIAN Internal Medicine; OTHER PHYSICIAN Internal Medicine Hematology & Oncology; OTHER PHYSICIAN Internal Medicine Infectious Disease
PROC: 0JB90ZZ Excision of Buttock Subcutaneous Tissue and Fascia, Open Approach (ICD-10-PCS; 2024-11-20)
PROC: 0KBG0ZZ Excision of Left Trunk Muscle, Open Approach (ICD-10-PCS; 2024-12-01)
DX: L89.324 Pressure ulcer of left buttock, stage 4 (principal); A41.9 Sepsis, unspecified organism; R65.21 Severe sepsis with septic shock; E87.1 Hypo-osmolality and hyponatremia; G82.20 Paraplegia, unspecified; K59.2 Neurogenic bowel, not elsewhere classified; N39.0 Urinary tract infection, site not specified; Z66 Do not resuscitate; Z51.5 Encounter for palliative care; T82.868A Thrombosis due to vascular prosthetic devices, implants and grafts, initial encounter; G93.40 Encephalopathy, unspecified; M46.28 Osteomyelitis of vertebra, sacral and sacrococcygeal region; I82.621 Acute embolism and thrombosis of deep veins of right upper extremity; L89.314 Pressure ulcer of right buttock, stage 4; L89.893 Pressure ulcer of other site, stage 3; L89.612 Pressure ulcer of right heel, stage 2; N31.9 Neuromuscular dysfunction of bladder, unspecified; B96.5 Pseudomonas (aeruginosa) (mallei) (pseudomallei) as the cause of diseases classified elsewhere; K21.9 Gastro-esophageal reflux disease without esophagitis; E78.00 Pure hypercholesterolemia, unspecified; J10.1 Influenza due to other identified influenza virus with other respiratory manifestations; B95.62 Methicillin resistant Staphylococcus aureus infection as the cause of diseases classified elsewhere; D63.8 Anemia in other chronic diseases classified elsewhere; R74.01 Elevation of levels of liver transaminase levels; E87.6 Hypokalemia; E83.51 Hypocalcemia; E83.39 Other disorders of phosphorus metabolism; Z20.822 Contact with and (suspected) exposure to COVID-19; Y71.2 Prosthetic and other implants, materials and accessory cardiovascular devices associated with adverse incidents; S24.103S Unspecified injury at T7-T10 level of thoracic spinal cord, sequela; V89.2XXS Person injured in unspecified motor-vehicle accident, traffic, sequela; Z79.899 Other long term (current) drug therapy; R13.10 Dysphagia, unspecified; Z96.0 Presence of urogenital implants; Z93.3 Colostomy status; Z98.1 Arthrodesis status; Z92.3 Personal history of irradiation; Z92.21 Personal history of antineoplastic chemotherapy; Z88.1 Allergy status to other antibiotic agents; Z85.21 Personal history of malignant neoplasm of larynx; Z93.1 Gastrostomy status
CPT/HCPCS: 36600; 71045; 73130; 80048; 80053; 80202; 82248; 82306; 82533; 82550; 82607; 82728; 82746; 82805; 82962; 83540; 83550; 83605; 83735; 83880; 84100; 84439; 84443; 85014; 85018; 85025; 85027; 85045; 85730; 86850; 86900; 86901; 86920; 87040; 87070; 87075; 87077; 87147; 87186; 87205; 87502; 87811; 92526; 92610; 93005; 93971; 96374; 99284; J0699; J0878; J2185; P9016; P9047

== ENCOUNTER 2024-12-06 13:14 | Inpatient (IN) | payer OTHER, SELFPAY ==
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
[2024-12-06] MEDS: MORPHINE SULFATE 2 MG IV ×4 (14:07→23:57)
[2024-12-06 16:46] VITALS: BP 88/45
--- NOTE | 2024-12-06 17:16 | HOSPNOTE ---
Patient admitted under inpatient level of hospice care. Patient meets inpatient level of care for the management of pain, dyspnea, and excessive secretions that could not be managed in the outpatient setting. Patient is getting IVP PRN doses of
morphine and a morphine infusion will be initiated per protocol. Patient also requires frequent nursing assessments. Hospice will see patient daily.
[2024-12-06] MEDS: TYLENOL 650 MG PO (17:44)
[2024-12-06 19:44] VITALS: BP 88/38
[2024-12-07] MEDS: MORPHINE SULFATE 2 MG IV ×9 (04:15→20:54)
[2024-12-07] MEDS: ATIVAN 1 MG IV ×5 (06:10→20:53)
[2024-12-07 08:15] VITALS: BP 104/52
--- NOTE | 2024-12-07 09:02 | W.PN.HOSP.TC ---
Today's Communication/Plan
-
Comfort care
Assessment / Plan
Assessment / Plan
Physical exam:
General: acute on chronically ill
Respiratory: Clear to Auscultation; on nasal cannula oxygen supplementation
Cardiac: S1/S2 NSR
GI: Soft, Nontender and Nondistended. Colostomy in place. PEG in place.
Skin: Multiple sacral wounds post debridement.
Neuro: Lethargic, baseline paraplegia
A/P:
Comfort care:
Continue comfort care measures
Continue morphine drip
Ativan as needed
Bowel regimen as needed
Other medical problems:
Infected sacral wound, multidrug-resistant Pseudomonas, E. coli, Enterococcus AVM
Bilateral ischium stage IV osteomyelitis
Severe sepsis
Influenza A
Out of the hospital recent MRSA bacteremia from sacral wound
Paraplegia
Chronic Bolñaos catheter
Laryngeal cancer
Right upper extremity deep vein thrombosis
Neurogenic bladder
Neurogenic colon with colostomy
Dyslipidemia
No DVT prophylaxis since patient on comfort care measures
CODE STATUS DNR
Anticipated Discharge: 24 - 48 hours
Subjective/Interval History
-
Date of Service: December 07, 2024
No new events
Objective Data
-
Vital Signs:
Vital Signs
Temp Pulse Resp BP Pulse Ox
98.9 F 102 14 88/38 92
12/06/24 19:44 12/06/24 19:44 12/06/24 19:44 12/06/24 19:44 12/06/24 19:44
I&O
12/06/24 12/07/24 12/08/24
06:59 06:59 06:59
Output Total 950 / 950
Balance -950 / -950
--- NOTE | 2024-12-07 09:38 | HOSPNOTE ---
Pressurised Container Filler visited with 69 year old patient who is currently on GIP Level of Care, to conduct the Initial MANAGED CARE SPECIALIST Assessment. Patient was recently admitted onto Hospice Services with a primary diagnosis of Severe Protein Calorie Malnutrition.
MANAGED CARE SPECIALIST entered patient's room and was greeted by patient's niece Lizzette. MANAGED CARE SPECIALIST introduced herself and explained the purpose of today's visit. MANAGED CARE SPECIALIST greeted patient and niece informed MANAGED CARE SPECIALIST that patient isn't talking today. Lizzette informed with MANAGED CARE SPECIALIST that she's
been trying to get patient to talk since her arrival at 7:00 a.m. Lizzette reported she told patient she loved him and he didn't respond even though that is his favorite word. Lizzette reported patient has not been eating. Emotional support provided.
Lizzette reported she has been like a daughter to the patient since she was a little girl. Lizzette reported patient has a big family, he has 4 brothers and 2 sisters. Lizzette reported patient's brother Renato is the POA and he has a Living Will. Lizzette
reported that patient is a Hinduism and there is no restoration affiliation. Lizzette reported patient will be cremated and patient's brother Miguel is finalizing those arrangements. Patient's brother Miguel entered the room and MANAGED CARE SPECIALIST greeted him and
explained her role. Miguel reported the family just wants to be here with the patient as much as possible and that they don't need anything. Lizzette and Miguel appears to be coping appropriately and Bereavement Risk is low. Miguel reported the
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 Emotional support provided. 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 Patient requires GIP Level of Care for SN assessments of pain, dyspnea,
and excessive secretions that can not be managed at home and/or in an outpatient setting. Discharge planning continues. MANAGED CARE SPECIALIST will continue to monitor patient weekly while on GIP.
--- NOTE | 2024-12-07 10:55 | CM ---
Chart reviewed
patient on hospice service
PLAN: continues [facility]
[2024-12-07] MEDS: ROBINUL 0.2 MG IV ×2 (11:46→15:46)
--- NOTE | 2024-12-07 14:15 | HOSPNOTE ---
Patient is unresponsive,eyes closed,does not respond to his name being called. Family is in the room. Prn dose of Morphine recently given,patient was moaning. Patient will remain GIP ,symptoms cannot be managed outside of the hospital setting at
this time.
[2024-12-07 19:48] VITALS: BP 79/49
[2024-12-07] MEDS: OFIRMEV 100 IV (21:37)
[2024-12-08] MEDS: MORPHINE SULFATE 2 MG IV ×8 (01:19→22:59)
[2024-12-08] MEDS: NSS (PRESERVATIVE FREE) 0.5 ML IV ×3 (01:19→21:39)
[2024-12-08] MEDS: ATIVAN 1 MG IV ×6 (01:19→21:39)
[2024-12-08 07:20] VITALS: BP 81/41
--- NOTE | 2024-12-08 08:56 | W.PN.HOSP.TC ---
Today's Communication/Plan
-
Comfort care
Assessment / Plan
Assessment / Plan
Physical exam:
General: acute on chronically ill
Respiratory: Clear to Auscultation; on nasal cannula oxygen supplementation
Cardiac: S1/S2 NSR
GI: Soft, Nontender and Nondistended. Colostomy in place. PEG in place.
Skin: Multiple sacral wounds post debridement.
Neuro: Lethargic, baseline paraplegia
A/P:
Comfort care:
Continue comfort care measures
Continue morphine drip
Ativan as needed
Bowel regimen as needed
Discussed with hospice nurse today
Discussed with attending RN today
Other medical problems:
Infected sacral wound, multidrug-resistant Pseudomonas, E. coli, Enterococcus Avium
Bilateral ischium stage IV osteomyelitis
Severe sepsis
Influenza A
Out of the hospital recent MRSA bacteremia from sacral wound
Paraplegia
Chronic Bolaños catheter
Laryngeal cancer
Right upper extremity deep vein thrombosis
Neurogenic bladder
Neurogenic colon with colostomy
Dyslipidemia
No DVT prophylaxis since patient on comfort care measures
CODE STATUS DNR
Anticipated Discharge: 24 - 48 hours
Subjective/Interval History
-
Date of Service: December 08, 2024
Patient minimally responsive
Objective Data
-
Vital Signs:
Vital Signs
Temp Pulse Resp BP Pulse Ox
103.0 F H 119 12 79/49 77
12/07/24 19:48 12/07/24 19:48 12/07/24 19:48 12/07/24 19:48 12/07/24 19:48
I&O
12/07/24 12/08/24 12/09/24
06:59 06:59 06:59
Intake Total 0 / 0
Output Total 950 / 950 525 / 525
Balance -950 / -950 -525 / -525
--- NOTE | 2024-12-08 12:01 | CM ---
Patient chart reviewed
Family at bedside
PLAN: Patient remains on hospice
[2024-12-08] MEDS: NSS (PRESERVATIVE FREE) 10 ML IV ×3 (12:13→16:16)
--- NOTE | 2024-12-08 12:39 | HOSPNOTE ---
Patient is unresponsive at this time and no urine output noted. Patient was turned, washed and repositioned. Wound care was performed by floor RN. Patient remains on a morphine drip with IV pushes prior to care. Patient appears transitioning
mottling noted. Patient does appear to be in pain when moved please medicate prior, large family present and wanted a lot of information on the flu and who made the decision about hospice service. I explained to the family that the patient made the
decision for hospice services. All questions were answered and there is a lot of family dynamics and all not in agreement with hospice. I told family again that the patient made the decision. Patient needs IV medications and will remain here on
hospice services and be seen daily by hospice nurse.
[2024-12-08] MEDS: MORPHINE 100 IV (15:41)
[2024-12-08 19:47] VITALS: BP 83/46
[2024-12-09] MEDS: ATIVAN 1 MG IV ×2 (02:01→09:09)
[2024-12-09] MEDS: NSS (PRESERVATIVE FREE) 0.25 ML IV (02:02)
[2024-12-09] MEDS: MORPHINE SULFATE 2 MG IV (03:46)
[2024-12-09 07:35] VITALS: BP 76/41
[2024-12-09] MEDS: MORPHINE SULFATE 4 MG IV ×3 (08:21→09:43)
--- NOTE | 2024-12-09 08:55 | W.PN.HOSP.TC ---
Today's Communication/Plan
-
Comfort care
Assessment / Plan
Assessment / Plan
Physical exam:
General: acute on chronically ill
Respiratory: Clear to Auscultation; on nasal cannula oxygen supplementation
Cardiac: S1/S2 NSR
GI: Soft, Nontender and Nondistended. Colostomy in place.
Skin: Multiple sacral wounds post debridement.
Neuro: Lethargic, baseline paraplegia
A/P:
Comfort care:
Continue comfort care measures
Continue morphine drip, increasing doses
Ativan as needed
Bowel regimen as needed
Discussed with attending RN today
Discussed with family at bedside today
Other medical problems:
Infected sacral wound, multidrug-resistant Pseudomonas, E. coli, Enterococcus Avium
Bilateral ischium stage IV osteomyelitis
Severe sepsis
Influenza A
Out of the hospital recent MRSA bacteremia from sacral wound
Paraplegia
Chronic Bolaños catheter
Laryngeal cancer
Right upper extremity deep vein thrombosis
Neurogenic bladder
Neurogenic colon with colostomy
Dyslipidemia
No DVT prophylaxis since patient on comfort care measures
CODE STATUS DNR
Anticipated Discharge: 24 - 48 hours
Subjective/Interval History
-
Date of Service: December 09, 2024
minimally responsive
Objective Data
-
Vital Signs:
Vital Signs
Temp Pulse Resp BP Pulse Ox
100.1 F 106 20 76/41 75
12/09/24 07:35 12/09/24 07:35 12/09/24 07:35 12/09/24 07:35 12/09/24 07:35
I&O
12/08/24 12/09/24 12/10/24
06:59 06:59 06:59
Intake Total 0 / 0 0 / 0
Output Total 525 / 525 85 / 85
Balance -525 / -525 -85 / -85
[2024-12-09] MEDS: FLUSH (NSS) 2 FLUSH IV ×4 (09:02→10:54)
[2024-12-09] MEDS: NSS (PRESERVATIVE FREE) 0.5 ML IV (09:09)
[2024-12-09] MEDS: MORPHINE SULFATE 6 MG IV (10:51)
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
--- NOTE | 2024-12-09 13:25 | HOSPNOTE ---
Patient GIP for management of end of life symptoms. Patient unresponsive, respirations shallow at 8 breaths per minute. Patient on Morphine 6 mg/hr via IV, patient unable to swallow and take PO medications. Patients sister at the bedside, stated
family is aware patient is close to passing and they 'just want him at peace'.
[2024-12-09] MEDS: MORPHINE 100 IV (13:43)
--- NOTE | 2024-12-09 15:32 | CM ---
Hospice following
Family at bedside
CM available to family if needed
Plan - Hospice GIP
--- NOTE | 2024-12-09 18:55 | W.PN.DEATH ---
Pronouncement of
-
Called to see patient to pronounce.
No spontaneous heart tones or respirations noted.
Patient not responsive to verbal stimuli.
Patient is pronounced .
Time of : 18:40
Date of : 12/09/24
Cause of : Infected sacral wound
Bilateral ischium stage IV osteomyelitis
Septic shock
Influenza
Family Notified: Yes
--- NOTE | 2024-12-09 20:59 | W.DCSUMMARY ---
Discharge Summary
Discharge Data
Date of Admission: 12/06/24
Date of Discharge: 12/09/24
-
Pending Results: No
Hospital Course
Patient is 69 years old male history of paraplegia, head and neck cancer, MRSA bacteremia, presented to the hospital with sacral wound infection. ID and surgery consulted. Surgery did local debridement. ID changed antibiotics around according to
cultures. Patient course complicated with DVT, influenza, sepsis, among other multiple medical problems. Despite best treatment patient continued to deteriorate clinically and he decided to enroll in hospice care. He was placed on comfort care
measures. Patient on 12/09/2024 at 18:40.
Discharge Plan
-
Patient Disposition:
Date/Time
Date/Time: 12/09/24 18:40
Discharge Date and Time
Discharge Date/Time: 12/09/24 18:40
Print Language: INDIAN
--- NOTE | 2024-12-09 23:03 | PTCARENOTE ---
Patient passed prior to 1900 when I assumed care of patient. Family bedside, doctor to bedside to pronounce as well. time of 1839. [facility] called by dayshift nurse. Morphine gtt hanging was turned off and wasted with another nurse. Paper
sent down to pharmacy.
--- NOTE | 2024-12-10 07:48 | PTCARENOTE ---
Pt has at 18:40 this aaron. university relations recruiter made aware to pronounce. Family at pt's bedside. Emotional support and instructions provided. Report passed on to nightshift RN. Will cont to monitor.
== END 2024-12-09 18:40 | disposition expired | DRG 951 ==
LOC: 2 NORTH 13:14
PROVIDERS: ADMITTING PHYSICIAN Hospitalist
DX: Z51.5 Encounter for palliative care (principal); R65.21 Severe sepsis with septic shock; A41.9 Sepsis, unspecified organism; K59.2 Neurogenic bowel, not elsewhere classified; Z16.24 Resistance to multiple antibiotics; G82.20 Paraplegia, unspecified; M86.8X8 Other osteomyelitis, other site; I82.621 Acute embolism and thrombosis of deep veins of right upper extremity; Z66 Do not resuscitate; E78.5 Hyperlipidemia, unspecified; N31.9 Neuromuscular dysfunction of bladder, unspecified; Z93.3 Colostomy status; Z98.1 Arthrodesis status; Z92.21 Personal history of antineoplastic chemotherapy; Z85.89 Personal history of malignant neoplasm of other organs and systems; Z85.21 Personal history of malignant neoplasm of larynx; V89.2XXS Person injured in unspecified motor-vehicle accident, traffic, sequela; S24.103S Unspecified injury at T7-T10 level of thoracic spinal cord, sequela; B96.5 Pseudomonas (aeruginosa) (mallei) (pseudomallei) as the cause of diseases classified elsewhere; L89.159 Pressure ulcer of sacral region, unspecified stage